=== PATIENT | male | born 1950 | race Caucasian/White ===

== ENCOUNTER → 2017-03-21 | Outpatient (CLI) | payer MEDICARE, OTHER ==
--- NOTE | 2017-03-21 10:12 | MR ---
EXAMINATION TYPE: MR hip RT wo con DATE OF EXAM: 03/21/2017 9:58 AM COMPARISON: NONE HISTORY: Right hip pain TECHNIQUE: Multiplanar, multiecho imaging of the right hip is performed without IV contrast. FINDINGS: There are bilateral hip joint effusions, larger on the right than the left. 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 There is no evidence of bony collapse. No definite ligamentous or capsular abnormality is seen. IMPRESSION: GRADE 1 AVN OF BOTH HIPS GREATER ON THE RIGHT THAN THE LEFT.
== END ==
LOC: RADMRIMAIN 09:05
PROVIDERS: ATTEND Orthopaedic Surgery
DX: M87.88 Other osteonecrosis, other site (principal)

== ENCOUNTER → 2017-07-14 | Outpatient (CLI) | payer MEDICARE, OTHER | END | disposition home or self-care (01) | LOC: LABPAT 12:05 | PROVIDERS: ATTEND Orthopaedic Surgery | DX: Z01.812 Encounter for preprocedural laboratory examination (principal) | CPT/HCPCS: 86850; 86900; 86901; 87070 ==

== ENCOUNTER 2017-07-20 07:30 | Inpatient (IN) | payer MEDICARE, OTHER ==
[2017-07-08 15:45] VITALS: BMI 31.7
--- NOTE | 2017-07-19 14:30 | HP ---
HISTORY AND PHYSICAL Surgery scheduled for 07/20/2017. Josh Jackson is a 67-year-old patient seen with symptomatic right hip osteoarthritis. After having treatment options discussed, he elected to proceed with a right total hip arthroplasty. Consent regarding the procedure was obtained. Medical clearance was provided by Dr. Catalino Smith. PAST MEDICAL HISTORY: Hypertension, depression, hyperlipidemia. PAST SURGICAL HISTORY: Ankle surgery, left knee arthroscopy, nasal surgery. DAILY MEDICATIONS: Aspirin, Bystolic, citalopram, simvastatin. ALLERGIES: None reported. SOCIAL HISTORY: Patient denies tobacco use. PHYSICAL EXAMINATION: Evaluation of the right hip: There is diffuse tenderness. Limited range of motion with pain. Positive hip impingement sign. Straight leg raise is negative. Distal neurovascular exam is intact. RADIOGRAPHS: Radiographs of the right hip revealed moderate osteoarthritis and evidence for avascular necrosis. MRI of right hip confirmed avascular necrosis of the femoral head as well as osteoarthritis. IMPRESSION: 1. Right hip osteoarthritis/avascular necrosis. 2. Hypertension. 3. Hyperlipidemia. PLAN: Direct anterior right total hip arthroplasty. MMODL / IJN: [id number] /
[~2017-07-20 07:30] MED LIST: ACETAMINOPHEN TAB 500 MG TAB PO ONE; HYDROmorphone 0.5 MG/0.5 ML SYRINGE IVP PRN; LIDOCAINE 1% 20 ML VIAL (10MG/ML) FOR IV START INTRADERMA PRN; MELOXICAM 7.5 MG TAB PO ONE; ONDANSETRON 4 MG/2 ML VIAL IVP ONE; TRANEXAMIC ACID 1,000 MG in SODIUM CHLORIDE 0.9% 100 ML IVPB ONE; ceFAZolin IN SWFI 2 GM/20 ML SYRINGE IVP ONE
[2017-07-20] MEDS: LACTATED RINGERS 1,000 ML IV SCH ×2 (10:56→18:39)
[2017-07-20] MEDS ORDERED: ROPIVACAINE 246.25 MG, EPINEPHrine 0.5 MG, KETOROLAC 30 MG, cloNIDine HCL/PF 80 MCG, WA... MISCELLANE ONE ×5 (12:16)
[2017-07-20] MEDS ORDERED: SODIUM CHLORIDE 0.9% 100 ML BAG ONE (12:22)
[2017-07-20] MEDS ORDERED: GLYCOPYRROLATE 0.2 MG/ML 2 ML VIAL ONE (12:22)
[2017-07-20] MEDS ORDERED: PROPOFOL 10 MG/ML 20 ML VIAL IV ONE (12:22)
[2017-07-20] MEDS ORDERED: diphenhydrAMINE 50 MG/ML 1 ML VIAL ONE (12:22)
[2017-07-20] MEDS ORDERED: KETAMINE 10 MG/ML 20 ML VIAL ONE (12:22)
[2017-07-20] MEDS ORDERED: TRANEXAMIC ACID 1,000 MG/10 ML VIAL ONE (12:22)
[2017-07-20] MEDS ORDERED: MIDAZOLAM 2 MG/2 ML VIAL ONE (12:22)
[2017-07-20] MEDS ORDERED: fentaNYL (PF) 50 MCG/ML 2 ML AMP ONE (12:22)
[2017-07-20] MEDS ORDERED: PHENYLEPHRINE-0.9% NACL SYG 1 MG/10 ML SYRINGE ONE (12:22)
[2017-07-20] MEDS ORDERED: ceFAZolin 3,000 MG in SODIUM CHLORIDE 0.9% IRRIGATIO 3,000 ML IRRIGATION ONE (13:02)
[2017-07-20] MEDS ORDERED: LACTATED RINGERS 1,000 ML IV ONE (13:51)
--- NOTE | 2017-07-20 14:26 | FL ---
EXAMINATION TYPE: FL guidance operating room, XR Hip Limited RT DATE OF EXAM: 07/20/2017 CLINICAL HISTORY: Avascular necrosis with right hip replacement. Anterior approach. TECHNIQUE: Fluoroscopy. COMPARISON: None. FINDINGS/IMPRESSION: Fluoroscopic guidance was provided during procedure performed by Dr. Sims. A total of 37 seconds of fluoroscopic time was utilized during the procedure and 1 spot image wa s acquired of the right femoral arthroplasty.
[2017-07-20] MEDS ORDERED: NALOXONE 0.4 MG/ML 1 ML VIAL IV PRN (14:29)
[2017-07-20] MEDS ORDERED: HYDROmorphone 2 MG/ML 1 ML SYRINGE IVP PRN ×3 (14:29)
[2017-07-20] MEDS ORDERED: ONDANSETRON 4 MG/2 ML VIAL IVP PRN (14:29)
[2017-07-20] MEDS ORDERED: HYDROcodone/APAP 7.5-325MG 1 EACH TAB PO PRN (14:29)
--- NOTE | 2017-07-20 14:29 | P.OP ---
Date of Procedure: 07/20/17 Preoperative Diagnosis: Right hip osteoarthritis/avascular necrosis Postoperative Diagnosis: Right hip osteoarthritis/avascular necrosis Procedure(s) Performed: Direct anterior right total hip arthroplasty Implants: 1. Depuy Corail size 13 KA standard collar press-fit femoral stem 2. Depuy Porter 58 mm press-fit acetabular shell 3. Depuy pinnacle polyethylene acetabular liner neutral 36 mm ID 58 mm OD 4. Biolox delta ceramic femoral head +5 36 mm Anesthesia: local, spinal Surgeon: Nahid Sims [employer] #1: Dom Mcnamara Estimated Blood Loss (ml): 250 Pathology: other (Femoral head) Condition: stable Disposition: PACU Indications for Procedure: 67-year-old patient seen with symptomatic right hip osteoarthritis/avascular necrosis. After treatment options were discussed, he elected to proceed with total hip arthroplasty. Operative Findings: see description of procedure Description of Procedure: The patient was taken to the operative suite. Patient underwent a spinal anesthetic by the department of anesthesia. Patient was then transferred to the [facility] table. Patient was given preoperative IV antibiotics and TXA. Both lower extremities were placed in standard leg spars. The hip was then prepped and draped in the normal sterile orthopedic fashion. A standard anterior incision was made beginning 3 cm lateral and 1 cm distal to the ASIS extending 10 cm. Dissection was then carried down through the subcutaneous soft tissues down to the fascia overlying the tensor fascia avinash. An incision was now made through the fascia. Careful dissection was taken down exposing the tensor fascia avinash muscle. A Cobra retractor was now placed along the medial femoral neck and a second one along the lateral femoral neck. The venous circumflex vessels were now identified, cauterized and clipped. We identified the anterior hip capsule. An incision was made through the hip capsule along the lateral border. Tag sutures were then placed along the anterior capsule and lateral capsule. We then performed a capsulotomy. Retractors were now placed around the femoral neck itself. A Cobra retractor was now placed along the anterior acetabulum. Good exposure was now noted of the femoral head/neck complex. Residual labrum was debrided out. We placed the extremity into 3 turns of fine traction. We were then able to introduce a skid in between the femoral head and acetabulum. A placed a awl into the femoral head. We took 2 turns of traction off the extremity. Rotation was now released. The femoral head was then dislocated without difficulty. Additional releasing was performed of the capsule. The head was then reduced. All traction was released. A femoral neck cut was now made with a sagittal saw. It was completed with an osteotome at the lateral neck area. The femoral head was now removed without difficulty. The extremity was now rotated to 45 of external rotation. It was locked in position. Residual labrum was now debrided out. Serial reaming was performed of the acetabulum. Once we reached the appropriate size and a trial was position and fit nicely. The appropriate size was now chosen opened and made available. The wound was irrigated with pulse lavage mechanical irrigation. It was introduced into the acetabulum without difficulty. The C-arm/fluoroscopy was now brought into the operative field. We made sure we had a true AP pelvic view. We now under direct C-arm/ fluoroscopy introduced into the acetabular component with appropriate version and inclination. It was well seated and stable. The C-arm was pulled back. An appropriate liner was introduced and clicked into position. It was felt to be stable. At this point retractors were removed. The extremity was now placed into 120 external rotation with no traction. The leg was now dropped to the ground and adducted. Appropriate retractors were now positioned along the proximal femur. We also placed our femoral look into position. Additional capsular releasing was performed to gain access to the proximal femur. We now used a box osteotome. A canal finder was now utilized. Serial broaching was now performed until we reached the appropriate size with good overall rotational stability. Appropriate calcar planing was performed. A trial head/ neck was placed into position. The hip was now reduced. The C-arm/fluoroscopy was brought back into the operative field. A spot film was obtained of the nonoperative hip. A spot film was obtained of the trial components. Overlays were performed, we noted good overall alignment and positioning for determining leg length. The C-arm/fluoroscopy was pulled back. Retractors were repositioned and the hip was dislocated. The leg was again taken down to the ground and adducted. Appropriate retractors were repositioned as well as the femoral hook. All trial components were removed. The deep soft tissues were infiltrated with local analgesic. The wound was irrigated with pulse lavage mechanical irrigation. The femoral implant was opened along with the femoral head. The femoral implant was introduced with good purchase and fixation noted. The femoral head was introduced with good positioning and fixation noted. Retractors were now removed. The hip was now reduced. There appeared be good positioning of the hip. This was confirmed with fluoroscopy and spot films were obtained to document this. A second gram of TXA was given. Bipolar cautery had been utilized intermittently through the procedure for hemostasis. The wound was irrigated copiously with pulse lavage mechanical irrigation. The fascia was repaired with Vicryl suture. The subcutaneous soft tissues were repaired in layers with Vicryl suture. The skin was approximated with pernio/ Dermabond. Sterile dressings were applied. Patient was then awakened, transferred to a bed and taken to recovery in stable condition. Angus DIAZ assisted with the procedure.
[2017-07-20] MEDS: hydrOXYzine PAMOATE 25 MG CAP PO PRN (18:41)
[2017-07-20] MEDS: HYDROcodone/APAP 7.5-325MG 1 EACH TAB PO PRN (18:42)
[2017-07-20] MEDS: ceFAZolin IN SWFI 2 GM/20 ML SYRINGE IVP SCH ×2 (18:59→23:00)
[2017-07-20] MEDS: traMADol 50 MG TAB PO SCH ×2 (18:59→22:59)
[2017-07-20] MEDS ORDERED: ATORVASTATIN 20 MG TAB PO SCH (21:00)
[2017-07-20] MEDS ORDERED: FENOFIBRATE 160 MG TAB PO SCH (21:00)
[2017-07-20] MEDS ORDERED: SENNOSIDES-DOCUSATE SODIUM 1 EACH TAB PO SCH (21:00)
[2017-07-20] MEDS ORDERED: CITALOPRAM HYDROBROMIDE 20 MG TAB PO SCH (21:00)
[2017-07-21 02:11] VITALS: RESP 16
[2017-07-21] MEDS: HYDROcodone/APAP 7.5-325MG 1 EACH TAB PO PRN (05:25)
[2017-07-21] MEDS: hydrOXYzine PAMOATE 25 MG CAP PO PRN (05:25)
[2017-07-21 07:45] LABS: Basophils % (A) 0 %; Eosinophils # (A) 0.2 k/uL (0-0.7); Eosinophils % (A) 2 %; HCT 37.4 % (39.0-53.0); HGB 12.2 gm/dL (13.0-17.5); Lymphocytes # (A) 1.1 k/uL (1.0-4.8); Lymphocytes % (A) 12 %; MCH 30.6 pg (25.0-35.0); MCHC 32.8 g/dL (31.0-37.0); MCV 93.3 fL (80.0-100.0); Mean Platelet Volume 7.6; Monocytes # (A) 0.5 k/uL (0-1.0); Monocytes % (A) 6 %; Neutrophils # (A) 7.1 k/uL (1.3-7.7); Neutrophils % (A) 78 %; Platelet Count 252 k/uL (150-450); RDW 13.6 % (11.5-15.5); WBC 9.1 k/uL (3.8-10.6)
[2017-07-21] MEDS: traMADol 50 MG TAB PO SCH ×2 (08:21→13:24)
[2017-07-21] MEDS ORDERED: FERROUS SULFATE 325 MG TAB PO SCH (09:00)
[2017-07-21] MEDS ORDERED: ENOXAPARIN 40 MG/0.4 ML SYRINGE SQ SCH (09:00)
[2017-07-21] MEDS ORDERED: NEBIVOLOL 5 MG TAB PO SCH (09:00)
[2017-07-21] MEDS ORDERED: FAMOTIDINE 20 MG TAB PO SCH (09:00)
[2017-07-21] MEDS ORDERED: MELOXICAM 7.5 MG TAB PO SCH (09:00)
[2017-07-21 10:02] VITALS: BP 143/73; PULSE 85; TEMP 97.9
--- NOTE | 2017-07-21 10:48 | P.CONS ---
History of Present Illness - Reason for Consult Consult date: 07/21/17 Medical management - Chief Complaint s/p right total hip arthroplasty - History of Present Illness 67-year-old male who underwent an elective right total hip arthroplasty on 07/20/[address] Sism secondary to osteoarthritis and avascular necrosis of the right femoral head. Dr. Smith was consulted for medical management. The patient has a history of hypertension, hyperlipidemia, kidney stones, depression, osteoarthritis, irritation of the right fourth and fifth fingers, ORIF of left ankle, and obesity. He is a former smoker and quit smoking cigarette in 1987. The patient was seen and examined at the bedside on rounds with Dr. Smith. The patient is awake and alert laying in bed. He is tolerating PO intake without nausea or vomiting. He states the pain in his right hip is tolerable at this time. He has been out of bed and ambulating to the bathroom. He states he has not ambulated in the hallway with physical therapy but is anticipating working with PT today. Dressing to hip is clean dry and intact. He denies shortness of breath or chest pain. His vital signs have remained stable. He is afebrile. He is on room air with an oxygen saturation greater than 92%. He denies any concerns or complaints at this time. Review of Systems GENERAL: Patient denies fever. Denies chills. EYES: Denies blurred vision. Denies vision changes. Denies eye pain. EARS, NOSE, MOUTH, & THROAT: Denies headache. Denies sore throat. Denies ear pain. RESPIRATORY: Denies cough. Denies shortness of breath. Denies sputum production. Denies hemoptysis. CARDIOVASCULAR: Denies chest pain or pressure. Denies palpitations. Denies arrhythmias. GASTROINTESTINAL: Denies abdominal pain. Denies diarrhea. Denies constipation. Denies nausea. Denies vomiting. Denies heartburn. Denies blood in the stool. GENITOURINARY: Denies urinary frequency. Denies burning. Denies dysuria. Denies cloudy urine. Denies blood in the urine. MUSCULOSKELETAL: Positive for recent pain in right hip. Denies myalgias. Denies joint swelling. Denies decreased range of motion beyond patients baseline. INTEGUMENTARY: Denies pruitis. Denies rash. PSYCHIATRIC: Denies suicidal or homicial ideations. ENDOCRINE: Denies weight change. Denies polydipsia. Denies polyuria. HEMATOLOGIC: Denies bleeding disorders. Past Medical History Past Medical History: Hyperlipidemia, Hypertension, Osteoarthritis (OA) Additional Past Medical History / Comment(s): hx. kidney stones History of Any Multi-Drug Resistant Organisms: None Reported Past Surgical History: Hernia Repair, Orthopedic Surgery Additional Past Surgical History / Comment(s): right 4th & 5th fingers amputated ,ORIF left ankle, arthroscopy both knees, sinus surg. Past Anesthesia/Blood Transfusion Reactions: No Reported Reaction Past Psychological History: Depression Smoking Status: Former smoker Past Alcohol Use History: Occasional Additional Past Alcohol Use History / Comment(s): quit smoking 1987, smoked 1ppd since age of 18 Past Drug Use History: None Reported - Past Family History Sister(s) Family Medical History: Cancer Medications and Allergies Home Medications Medication Instructions Recorded Confirmed Type Aspirin 81 mg PO DAILY 07/08/17 07/20/17 History Citalopram Hydrobromide [CeleXA] 20 mg PO HS 07/08/17 07/20/17 History Cyanocobalamin [Vitamin B-12] 500 mcg PO DAILY 07/08/17 07/20/17 History Fenofibrate Nanocrystallized 145 mg PO HS 07/08/17 07/20/17 History [Tricor] Ferrous Sulfate [Iron (65 MG 325 mg PO DAILY 07/08/17 07/20/17 History Elemental)] Multivitamin [Men's Multi-Vitamin] 1 tab PO DAILY 07/08/17 07/20/17 History Nebivolol [Bystolic] 5 mg PO DAILY 07/08/17 07/20/17 History [place]-3 Fatty Acids/Fish Oil [Fish 1 cap PO DAILY 07/08/17 07/20/17 History Oil 1,000 mg Softgel] Simvastatin [Zocor] 40 mg PO HS 07/08/17 07/20/17 History Allergies Allergy/AdvReac Type Severity Reaction Status Date / Time morphine AdvReac Nausea & Verified 07/20/17 17:47 Vomiting Physical Exam Vitals: Vital Signs Temp Pulse Pulse Pulse Resp BP BP 07/21/17 07:00 97.9 F 85 16 143/73 07/21/17 01:15 98.7 F 84 16 144/72 07/20/17 20:00 98.3 F 75 18 169/73 07/20/17 17:15 57 L 137/70 07/20/17 16:45 98.0 F 61 16 133/68 07/20/17 16:15 67 16 137/79 07/20/17 15:45 72 16 133/63 07/20/17 15:30 55 L 16 135/63 07/20/17 15:15 55 L 16 137/64 07/20/17 15:00 55 L 16 144/67 07/20/17 14:47 96.8 F L 68 14 120/59 07/20/17 10:40 98.4 F 76 16 186/89 Pulse Ox 07/21/17 07:00 93 L 07/21/17 01:15 93 L 07/20/17 20:00 96 07/20/17 17:15 07/20/17 16:45 92 L 07/20/17 16:15 95 07/20/17 15:45 95 07/20/17 15:30 95 07/20/17 15:15 100 07/20/17 15:00 100 07/20/17 14:47 99 07/20/17 10:40 95 Intake and Output 07/20/17 07/21/17 07/21/17 22:59 06:59 14:59 Intake Total 1060 430 Balance 1060 430 Intake: IV 500 Intake, IV Titration 60 80 Amount Lactated Ringers 1,000 ml 60 80 @ 20 mls/hr IV .Q24H [facility] Rx#:[id number] Oral 500 350 Other: Voiding Method Toilet Toilet # Voids 1 2 2 GENERAL: This is a 67-year-old male in no apparent distress at the time of examination. Pleasant and cooperative. HEENT: Head is atraumatic, normocephalic. Pupils are equal, round, and reactive to light. Sclerae anicteric. Conjunctivae are clear. Mucus membranes of the mouth are moist. Neck is supple. RESPIRATORY: Clear to ausculation. No wheezes, rales, or rhonchi. No use of accessory muscles. Patient maintaining oxygen saturation greater than 92% on room air. No chest wall tenderness is noted on palpation or with deep breathing. CARDIOVASCULAR: Regular rate and rhythm. S1 and S2 noted. No systolic or diastolic murmur auscultated. No JVD noted. No S3 or S4 noted. GASTROINTESTINAL: No distention noted. Abdomen soft and round. Normal active bowel sounds auscultated X 4 quadrants. No pain or tenderness noted upon palpation. INTEGUMENTARY: Dressing to right hip clean dry and intact. No drainage noted. No cyanosis. No jaundice. No rashes noted. No cellulitis noted. EXTREMITIES: 2+ peripheral pulses. No evidence of peripheral edema. No calf tenderness noted. NEUROLOGIC: Cranial nerves II-XII intact. PSYCHIATRIC: Awake, alert, and oriented X 3. Appropriate affect. Intact judgement and insight. Results CBC & Chem 7: 07/21/17 07:05 Labs: Abnormal Lab Results - Last 24 Hours (Table) 07/21/17 Range/Units 07:05 RBC 4.00 L (4.30-5.90) m/uL Hgb 12.2 L (13.0-17.5) gm/dL Hct 37.4 L (39.0-53.0) % Assessment and Plan Plan: ASSESSMENT: Osteoarthritis and avascular necrosis of right femoral head, s/p right total hip arthroplasty, POD #1 Essential hypertension Hyperlipidemia Depression, unspecified Obesity: BMI 31.7 Remote history of nicotine dependence, patient quit smoking cigarettes in 1987 PLAN: -Continue postoperative surgical care per Dr. Sims -Home meds as appropriate -Monitor labs -Pain control -Physical therapy -Activity as tolerated -Incentive spirometer 10 times an hour while awake -GI prophylaxis: Pepcid 20 mg by mouth daily -DVT prophylaxis: Lovenox 40 mg subcu daily -Monitor vital signs and address as appropriate -Discharge planning: Patient to return home when stable with home care -Further recommendations pending patient's course Nurse practitioner note has been reviewed by physician. Signing provider agrees with the documented findings, assessment, and plan of care.
--- NOTE | 2017-07-21 13:21 | P.PN ---
Subjective Progress Note Date: 07/21/17 Principal diagnosis: Status post right total hip arthroplasty Patient seen today resting in his hospital bed, his is present at bedside. Patient's done well at this point, exam ambulated with therapy. He is urinating on his own. No acute complaints. Denies any headaches, lightheadedness, chest pain or shortness of breath. Objective - Vital Signs Vital signs: Vital Signs Temp 97.9 F 07/21/17 07:00 Pulse 85 07/21/17 07:00 Resp 16 07/21/17 07:00 BP 143/73 07/21/17 07:00 Pulse Ox 93 L 07/21/17 07:00 Intake & Output 07/20/17 07/21/17 07/21/17 18:59 06:59 18:59 Intake Total 1801 990 Output Total 250 Balance 1551 990 Intake: IV 1801 Intake, IV Titration 140 Amount Lactated Ringers 1,000 ml 140 @ 20 mls/hr IV .Q24H [facility] Rx#:[id number] Oral 850 Output: Estimated Blood Loss 250 Other: Voiding Method Toilet Toilet # Voids 2 2 - Exam Right lower extremity: Incision is clean, dry, and intact. The prineo tape is in good condition. There is minimal soft tissue swelling and ecchymosis surrounding the medial and lateral aspects of the incision. Calf is soft, no tenderness with palpation. Plantar flexion, dorsiflexion, EHL, FHL are intact. Sensory exam to light touch throughout the extremity is intact, dorsal pedis pulses 2+. - Labs CBC & Chem 7: 07/21/17 07:05 Labs: Abnormal Lab Results - Last 24 Hours (Table) 07/21/17 Range/Units 07:05 RBC 4.00 L (4.30-5.90) m/uL Hgb 12.2 L (13.0-17.5) gm/dL Hct 37.4 L (39.0-53.0) % Assessment and Plan Assessment: Assessment: 1. Postop day 1 status post right total hip arthroplasty Plan: 1. Pain control, will discharge home on oral medication 2. GI and DVT prophylaxis, aspirin 325 mg twice a day 3. Wound care instructions were discussed 4. Home therapy and nursing after discharge 5. Medical recommendations 6. Discharge planning: Discharged home today Time with Patient: Less than 30
--- NOTE | 2017-07-21 13:24 | P.DS ---
Providers Date of admission: 07/20/17 10:27 Expected date of discharge: 07/21/17 Attending physician: Nahid Sims Consults: 07/20/17 14:29 Consult Physician Routine Consulting Provider: Catalino Smith Reason/Comments: Medical management Do you want consulting provider notified?: Yes Primary care physician: Catalino Smith [facility] Course: Date of admission: 07/20/2017 Date of discharge: 07/21/2017 Admission diagnosis: Status post right total hip arthroplasty Discharge diagnosis: Same Attending physician: Dr. Sims Surgical procedures: Right total hip arthroplasty Brief history: Patient is a 67-year-old male with a history of progressive primary right hip osteoarthritis. At this point patient has failed conservative treatment measures and has opted to proceed with a elective right total hip arthroplasty. Hospital course: Details of patient's surgery can be found in operative report. Patient tolerated the procedure well and was subsequently transported to orthopedic floor. Patient's orthopeidc and medical care was provided daily. Patient had daily laboratory tests performed for evaluation of overall blood counts. Patient had daily physical therapy to include strengthening range of motion as well as education with walker ambulation. Patient was treated with Lovenox for their postoperative DVT prophylaxis during their inpatient stay. Patient was noted to have a relatively uneventful postoperative course. Patient reported satisfactory pain control with oral pain medications by postoperative day 0. Patient showed satisfactory progress with physical therapy. Patient moved steadily through the program and had no difficulty meeting the goals by postoperative day 1. Given patient's otherwise satisfactory course and having met physical therapy goals, plan is to discharge patient home on postoperative day 1. Discharge condition/disposition: Patient will be discharged home in stable condition. Discharge medications: Instructions are given on resumption of patient's normal daily medications per primary care recommendation, in addition patient will be prescribed [place] 7.5 mg/325 mg, tramadol 50 mg, Colace 100 mg, aspirin 325 mg. Discharge instructions: 1. Wound care and infection precautions, keep incision dry and covered while showering, no lotions, creams, moisturizers. No soaking, tubs, pools, hottubs. Do not scrub over the incision. 2. Weight-bear as tolerated with walker / cane until follow-up. 3. Ice and elevate when necessary. Do not exceed 20 minutes per hour with ice pack. 4. Utilize compression sleeve until seen at first follow up appointment. 5. Visiting nursing care. 6. Home physical therapy. 7. Pain meds and anticoagulants per prescription. 8. Pain medication has potential to cause constipation. Increase oral fluid and fiber intake. Contact primary care provider if you have not had a bowel movement within 48 hours after discharge 9. No anti-inflammatory medication until discussed at first post operative visit, this including Motrin, Aleve, Mobic, Diclofenac. 10. Follow up in office at 2 weeks postop with Angus Mcnamara PA-C 11. Follow up with your primary care doctor 7-10 days after discharge. 12. Contact [facility] with any questions, . Procedures: Right total hip arthroplasty Patient Condition at Discharge: Good Plan - Discharge Summary Discharge Rx Participant: Yes New Discharge Prescriptions: New Aspirin 325 mg PO BID #60 tab Docusate [Colace] 100 mg PO DAILY #30 capsule HYDROcodone/APAP 7.5-325MG [[place] 7.5] 1 - 2 each PO Q6HR PRN #60 tab PRN Reason: Pain traMADol HCl [Ultram] 50 mg PO Q6H PRN #40 tab PRN Reason: Pain Continue Ferrous Sulfate [Iron (65 MG Elemental)] 325 mg PO DAILY Cyanocobalamin [Vitamin B-12] 500 mcg PO DAILY Simvastatin [Zocor] 40 mg PO HS Nebivolol [Bystolic] 5 mg PO DAILY Citalopram Hydrobromide [CeleXA] 20 mg PO HS [place]-3 Fatty Acids/Fish Oil [Fish Oil 1,000 mg Softgel] 1 cap PO DAILY Multivitamin [Men's Multi-Vitamin] 1 tab PO DAILY Fenofibrate Nanocrystallized [Tricor] 145 mg PO HS Discharge Medication List Citalopram Hydrobromide [CeleXA] 20 mg PO HS 07/08/17 [History] Cyanocobalamin [Vitamin B-12] 500 mcg PO DAILY 07/08/17 [History] Fenofibrate Nanocrystallized [Tricor] 145 mg PO HS 07/08/17 [History] Ferrous Sulfate [Iron (65 MG Elemental)] 325 mg PO DAILY 07/08/17 [History] Multivitamin [Men's Multi-Vitamin] 1 tab PO DAILY 07/08/17 [History] Nebivolol [Bystolic] 5 mg PO DAILY 07/08/17 [History] [place]-3 Fatty Acids/Fish Oil [Fish Oil 1,000 mg Softgel] 1 cap PO DAILY [History] Simvastatin [Zocor] 40 mg PO HS 07/08/17 [History] Aspirin 325 mg PO BID #60 tab 07/21/17 [Rx] Docusate [Colace] 100 mg PO DAILY #30 capsule 07/21/17 [Rx] HYDROcodone/APAP 7.5-325MG [[place] 7.5] 1 - 2 each PO Q6HR PRN #60 tab 07/21/17 [ Rx] traMADol HCl [Ultram] 50 mg PO Q6H PRN #40 tab 07/21/17 [Rx] Follow up Appointment(s)/Referral(s): Catalino Smith DO [Primary Care Provider] - 08/04/17 11:20 am Dom Mcnamara PAC [PHYSICIAN NURSERY ATTENDANT] - 08/05/17 1:50 pm [facility] Visiting Nurse, [NON-STAFF] - Patient Instructions/Handouts: Anterior Hip Replacement (DC) Activity/Diet/Wound Care/Special Instructions: Orthopedic Discharge Instructions: 1. Wound care and infection precautions, keep incision dry and covered while showering, no lotions, creams, moisturizers. No soaking, pools, hot tubs. Do not scrub over incision. 2. Weight-bear as tolerated with walker / cane until follow-up. 3. Ice and elevate when necessary. Do not exceed 20 minutes per hour with ice pack. 4. Utilize compression sleeve until seen at first follow up appointment. 5. Visiting nursing care. 6. Home physical therapy. 7. Pain meds and anticoagulants per prescription. 8. Pain medication has potential to cause constipation. Increase oral fluid and fiber intake. Contact primary care provider if you have not had a bowel movement within 48 hours after discharge. 9. No anti-inflammatory medication until discussed at first post operative visit, this including Motrin, Aleve, Mobic, Diclofenac. 10. Follow up in office at 2 weeks postop with Angus Mcnamara PA-C 11. Follow up with your primary care doctor 7-10 days after discharge. 12. Contact [facility] with any questions, . Discharge Disposition: HOME WITH HOME HEALTH SERVICES
== END 2017-07-21 15:35 | disposition home health service (06) | DRG 470 ==
LOC: 2ORMAIN 10:27 → 3SUR 16:23
PROVIDERS: ADMIT Orthopaedic Surgery; ATTEND Orthopaedic Surgery
PROC: 0SR904A Replacement of Right Hip Joint with Ceramic on Polyethylene Synthetic Substitute, Uncemented, Open Approach (ICD-10-PCS; principal; 2017-07-20 12:00)
DX: M16.11 Unilateral primary osteoarthritis, right hip (principal); M87.9 Osteonecrosis, unspecified; E66.9 Obesity, unspecified; Z68.31 Body mass index [BMI] 31.0-31.9, adult; E78.5 Hyperlipidemia, unspecified; M89.751 Major osseous defect, right pelvic region and thigh; F32.9 Major depressive disorder, single episode, unspecified; I10 Essential (primary) hypertension; Z79.82 Long term (current) use of aspirin; Z79.899 Other long term (current) drug therapy; Z87.442 Personal history of urinary calculi; Z87.891 Personal history of nicotine dependence; Z89.029 Acquired absence of unspecified finger(s); Z88.5 Allergy status to narcotic agent
CPT/HCPCS: 73501; 85025; 86850; 86900; 86901; 88305; 88311

== ENCOUNTER → 2019-06-24 | Outpatient (CLI) | payer MEDICARE, OTHER ==
--- NOTE | 2019-06-24 13:51 | ECHOF ---
Referral Reason:Chest Pain MEASUREMENTS -------- HEIGHT: 175.3 cm WEIGHT: 99.8 kg BP: RVIDd: 3.3 cm (< 3.3) IVSd: 1.3 cm (0.6 - 1.1) LVIDd: 3.8 cm (3.9 - 5.3) LVPWd: 1.4 cm (0.6 - 1.1) IVSs: 1.6 cm LVIDs: 3.0 cm LVPWs: 1.3 cm LA Diam: 3.5 cm (2.7 - 3.8) LAESV Index (A-L): 16.56 ml/m Ao Diam: 2.7 cm (2.0 - 3.7) AV Cusp: 1.4 cm (1.5 - 2.6) LA Diam: 3.6 cm (2.7 - 3.8) MV EXCURSION: 15.271 mm (> 18.000) MV EF SLOPE: 51 mm/s (70 - 150) EPSS: 0.3 cm MV E Kayden: 0.47 m/s MV DecT: 284 ms MV A Kayden: 0.79 m/s MV E/A Ratio: 0.60 RAP: 5.00 mmHg RVSP: 18.83 mmHg FINDINGS -------- Sinus rhythm. This was a technically adequate study. The left ventricular size is normal. There is mild concentric left ventricular hypertrophy. Overa ll left ventricular systolic function is low-normal with, an EF between 50 - 55 %. The diastolic fi lling pattern is normal for the age of the patient 8.30. The right ventricle is normal in size. The left atrial size is normal. Normal LA size by volume 22+/-6 ml/m2. The right atrial size is normal. There is mild aortic valve sclerosis. There is no evidence of aortic regurgitation. Mild mitral annular calcification present. Mild mitral regurgitation is present. Mild tricuspid regurgitation present. Right ventricular systolic pressure is normal at < 35 mmHg. There is no evidence of pulmonary hypertension. There is no pulmonic regurgitation present. The aortic root size is normal. There is no pericardial effusion. CONCLUSIONS -------- 1. Sinus rhythm. 2. This was a technically adequate study. 3. The left ventricular size is normal. 4. There is mild concentric left ventricular hypertrophy. 5. Overall left ventricular systolic function is low-normal with, an EF between 50 - 55 %. 6. The diastolic filling pattern is normal for the age of the patient 8.30 7. The right ventricle is normal in size. 8. The left atrial size is normal. 9. Normal LA size by volume 22+/-6 ml/m2. 10. The right atrial size is normal. 11. There is mild aortic valve sclerosis. 12. Mild mitral annular calcification present. 13. Mild mitral regurgitation is present. 14. Mild tricuspid regurgitation present. 15. Right ventricular systolic pressure is normal at < 35 mmHg. 16. There is no evidence of pulmonary hypertension. 17. There is no pulmonic regurgitation present. 18. The aortic root size is normal. 19. There is no pericardial effusion. AUTOMOTIVE SERVICE WRITER: Yelitza Friedman RDCS
--- NOTE | 2019-06-27 10:00 | EST ---
EXERCISE STRESS INDICATION: Chest pain. AGE: 69 SEX: M HT: 5'9" WT: 220 PROTOCOL: Dion STAGE: II DURATION OF EXERCISE: 6 minutes HEART RATE REST: 65 BLOOD PRESSURE REST: 172/85 MAXIMUM HEART RATE ACHIEVED: 108 MAXIMUM BLOOD PRESSURE: 236/67 85% MPHR: 128 100% MPHR: 151 METS: 7.1 STRESS DATA: Heart rate 65, pressure is 172/85 mmHg. Baseline EKG showed sinus rhythm. The patient exercised on the treadmill according to Dion protocol for a total of 6 minutes and achieved 7.1 METS. Max heart rate was 108, which is about 80% of maximum predicted heart rate. Maximum blood pressure was 236/67 mmHg. Clinically the patient did not develop some shortness of breath in response to exercise. The EKG did not show any significant ST or T-wave abnormalities concerning for ischemia. CONCLUSION: 1. Good exercise tolerance. 2. Normal EKG in response to exercise. 3. The patient achieved 80% of maximum predicted heart rate. MMODL / IJN: [id number] /
== END ==
LOC: RADNMMAIN 08:27
PROVIDERS: ATTEND Family Medicine
DX: I08.1 Rheumatic disorders of both mitral and tricuspid valves (principal); I10 Essential (primary) hypertension
CPT/HCPCS: 93017; 93306

== ENCOUNTER → 2019-07-07 | Outpatient (CLI) | payer MEDICARE, OTHER ==
--- NOTE | 2019-07-07 09:52 | US ---
EXAMINATION TYPE: US liver DATE OF EXAM: 07/07/2019 COMPARISON: NONE CLINICAL HISTORY: R74.8 Abn levels serum enzymes. no symptoms, abn labs EXAM MEASUREMENTS: Liver Length: 17.6 cm Gallbladder Wall: 0.2 cm CBD: 0.5 cm Right Kidney: 11.1 x 4.8 x 5.9 cm Pancreas: wnl Liver: Liver echotexture is coarse Gallbladder: small stones seen with no wall thickening Evidence for sonographic Robert's sign: no CBD: wnl Right Kidney: wnl There is no ascites. IMPRESSION: Correlate for hepatocellular disease, hepatic steatosis. Cholelithiasis.
== END | disposition home or self-care (01) ==
LOC: RADUSWWP 08:56
PROVIDERS: ATTEND Internal Medicine Gastroenterology
DX: K80.20 Calculus of gallbladder without cholecystitis without obstruction (principal)
CPT/HCPCS: 76705

== ENCOUNTER → 2019-07-18 | Outpatient (CLI) | payer MEDICARE, OTHER ==
[2019-07-18 10:43] LABS: Prothrombin Time 10.5 sec (9.0-12.0)
[2019-07-18 17:52] LABS: Protein, Total 6.3 g/dL (6.2-8.2)
[2019-07-18 18:18] LABS: % Iron Saturation 39.37 (15.00-50.00); Albumin 4.5 g/dL (3.80-4.90); Albumin/Globulin Ratio 2.37 (1.60-3.17); Bilirubin, Conjugated 0.2 mg/dL (0.20-0.40); Bilirubin,Unconjugated 0.5 mg/dL; Ferritin 1151.2 ng/mL (22.0-322.0); Globulin 1.9 g/dL (1.6-3.3); Total Bilirubin 0.7 mg/dL (0.3-1.2); Total Protein 6.4 g/dL (6.2-8.2)
[2019-07-19 13:30] LABS: Albumin 3.94 g/dL (3.80-4.90); Gamma Globulin 0.57 g/dL (0.70-1.50)
== END | disposition home or self-care (01) ==
LOC: LABWHC1 09:34
PROVIDERS: ATTEND Physician Assistant
DX: R74.8 Abnormal levels of other serum enzymes (principal)
CPT/HCPCS: 36415; 80076; 82103; 82728; 83516; 83540; 83550; 84165; 85610; 86038

== ENCOUNTER → 2020-02-03 | Outpatient (CLI) | payer MEDICARE, OTHER ==
[2020-02-03 16:50] LABS: Albumin 4.4 g/dL (3.80-4.90); Albumin/Globulin Ratio 2.32 (1.60-3.17); Bilirubin, Conjugated 0.2 mg/dL (0.20-0.40); Bilirubin,Unconjugated 0.4 mg/dL; Chol/HDL Ratio 4.79; Globulin 1.9 g/dL (1.6-3.3); LDL Cholesterol,Calculated 89.8 mg/dL (0.0-131.0); Total Bilirubin 0.6 mg/dL (0.2-1.2); Total Protein 6.3 g/dL (6.2-8.2); VLDL Calculation 35.2 mg/dL (5.00-40.00)
== END | disposition home or self-care (01) ==
LOC: LABWHC1 07:36
PROVIDERS: ATTEND Physician Assistant
DX: E78.5 Hyperlipidemia, unspecified (principal); R74.8 Abnormal levels of other serum enzymes
CPT/HCPCS: 36415; 80061; 80076

== ENCOUNTER → 2021-04-15 | Outpatient (CLI) | payer MEDICARE, OTHER ==
[2021-04-15 15:54] LABS: ALT 160 U/L (10-49); AST 114 U/L (14-35); African American GFR (CKD) 75.4 (60.0-200.0); Albumin 4.5 g/dL (3.8-4.9); Albumin/Globulin Ratio 1.94 (1.60-3.17); Alkaline Phosphatase 83 U/L (41-126); BUN/Creat Ratio 18.76 Ratio (12.00-20.00); Bilirubin, Conjugated <0.20 mg/dL (0.20-0.40); Blood Urea Nitrogen 21.2 mg/dL (9.0-27.0); Calcium 10.1 mg/dL (8.7-10.3); Carbon Dioxide 23.4 mmol/L (21.6-31.8); Chloride 100 mmol/L (96-109); Globulin 2.3 g/dL (1.6-3.3); Glucose 112 mg/dL (70-110); LDL Cholesterol,Calculated 89.8 mg/dL (0.0-131.0); Magnesium 1.7 mg/dL (1.5-2.4); Potassium 4.2 mmol/L (3.5-5.5); Sodium 137 mmol/L (135-145); Total Protein 6.8 g/dL (6.2-8.2)
== END | disposition home or self-care (01) ==
LOC: LABWHC1 08:41
PROVIDERS: ATTEND Nurse Practitioner Adult Health
DX: I10 Essential (primary) hypertension (principal); E78.5 Hyperlipidemia, unspecified; R74.8 Abnormal levels of other serum enzymes
CPT/HCPCS: 36415; 80048; 80061; 80076; 83735

== ENCOUNTER → 2021-07-25 | Outpatient (CLI) | payer MEDICARE, OTHER ==
[2021-07-25 16:44] LABS: % Iron Saturation 36.29 (15.00-50.00); ALT 92 U/L (10-49); AST 71 U/L (14-35); Albumin 4.3 g/dL (3.8-4.9); Albumin/Globulin Ratio 2.05 (1.60-3.17); Alkaline Phosphatase 82 U/L (41-126); Bilirubin, Conjugated <0.20 mg/dL (0.20-0.40); Chol/HDL Ratio 4.93 Ratio; Globulin 2.1 g/dL (1.6-3.3); Iron 126 ug/dL (65-175); LDL Cholesterol,Calculated 91.1 mg/dL (0.0-131.0); Total Iron Binding Capacity 347 ug/dL (228-460); Total Protein 6.4 g/dL (6.2-8.2)
== END | disposition home or self-care (01) ==
LOC: LABWHC1 09:01
PROVIDERS: ATTEND Internal Medicine Gastroenterology
DX: E78.5 Hyperlipidemia, unspecified (principal); R77.8 Other specified abnormalities of plasma proteins; R74.8 Abnormal levels of other serum enzymes
CPT/HCPCS: 36415; 80061; 80076; 82728; 83540; 83550

== ENCOUNTER → 2021-10-28 | Outpatient (CLI) | payer MEDICARE, OTHER ==
[2021-10-28 14:53] LABS: Basophils # (A) 0.09 X 10*3/uL (0.00-0.10); Basophils % (A) 1.3 %; Eosinophils # (A) 0.47 X 10*3/uL (0.04-0.35); Eosinophils % (A) 6.6 %; HCT 44.1 % (39.6-50.0); HGB 14.8 g/dL (13.0-17.0); Immature Grans, Automated 0.7 %; Lymphocytes # (A) 1.63 X 10*3/uL (0.90-5.00); Lymphocytes % (A) 22.8 %; MCH 31.4 pg (27.0-32.0); MCHC 33.6 g/dL (32.0-37.0); MCV 93.6 fL (80.0-97.0); Mean Platelet Volume 10.5 fL (9.5-12.2); Monocytes # (A) 0.65 X 10*3/uL (0.20-1.00); Monocytes % (A) 9.1 %; NRBC Per 100 WBC 0 /100 WBCS (0.0-0.0); Neutrophils # (A) 4.25 X 10*3/uL (1.80-7.70); Neutrophils % (A) 59.5 %; Platelet Count 289 X 10*3/uL (140-440); RBC 4.71 X 10*6/uL (4.40-5.60); WBC 7.14 X 10*3/uL (4.50-10.00)
[2021-10-28 15:12] LABS: ALT 175 U/L (10-49); AST 140 U/L (14-35); Albumin 4.5 g/dL (3.8-4.9); Albumin/Globulin Ratio 1.69 (1.60-3.17); Alkaline Phosphatase 77 U/L (41-126); Bilirubin, Conjugated <0.20 mg/dL (0.20-0.40); Globulin 2.7 g/dL (1.6-3.3); Total Protein 7.2 g/dL (6.2-8.2)
== END | disposition home or self-care (01) ==
LOC: LABWHC1 09:26
PROVIDERS: ATTEND Nurse Practitioner Family
DX: R74.8 Abnormal levels of other serum enzymes (principal); R77.8 Other specified abnormalities of plasma proteins
CPT/HCPCS: 36415; 80076; 82728; 85025

== ENCOUNTER → 2022-01-28 | Outpatient (CLI) | payer MEDICARE, OTHER ==
[2022-01-28 14:12] LABS: Basophils # (A) 0.09 X 10*3/uL (0.00-0.10); Basophils % (A) 1.3 %; Eosinophils # (A) 0.58 X 10*3/uL (0.04-0.35); Eosinophils % (A) 8.2 %; HCT 42.9 % (39.6-50.0); HGB 14.3 g/dL (13.0-17.0); Immature Grans, Automated 0.7 %; Lymphocytes # (A) 1.75 X 10*3/uL (0.90-5.00); Lymphocytes % (A) 24.8 %; MCHC 33.3 g/dL (32.0-37.0); MCV 93.1 fL (80.0-97.0); Mean Platelet Volume 10.8 fL (9.5-12.2); Monocytes # (A) 0.65 X 10*3/uL (0.20-1.00); Monocytes % (A) 9.2 %; NRBC Per 100 WBC 0 /100 WBCS (0.0-0.0); Neutrophils # (A) 3.95 X 10*3/uL (1.80-7.70); Neutrophils % (A) 55.8 %; Platelet Count 260 X 10*3/uL (140-440); RBC 4.61 X 10*6/uL (4.40-5.60); RDW 13.2 % (11.5-14.5); WBC 7.07 X 10*3/uL (4.50-10.00)
[2022-01-28 14:37] LABS: Albumin 4.3 g/dL (3.8-4.9); Albumin/Globulin Ratio 1.84 (1.60-3.17); Bilirubin, Conjugated 0.2 mg/dL (0.20-0.40); Bilirubin,Unconjugated 0.6 mg/dL (0.20-1.00); Globulin 2.4 g/dL (1.6-3.3); Total Bilirubin 0.8 mg/dL (0.30-1.20); Total Protein 6.7 g/dL (6.2-8.2)
== END | disposition home or self-care (01) ==
LOC: LABWHC1 09:33
PROVIDERS: ATTEND Internal Medicine Gastroenterology
DX: R74.8 Abnormal levels of other serum enzymes (principal)
CPT/HCPCS: 36415; 80076; 85025

== ENCOUNTER 2022-02-24 08:54 | Day surgery (SDC) | payer MEDICARE, OTHER ==
[~2022-02-24 08:54] MED LIST changes: -ACETAMINOPHEN TAB 500 MG TAB PO ONE; +ALPRAZolam 0.25 MG TAB PO PRN; -HYDROmorphone 0.5 MG/0.5 ML SYRINGE IVP PRN; -LIDOCAINE 1% 20 ML VIAL (10MG/ML) FOR IV START INTRADERMA PRN; -MELOXICAM 7.5 MG TAB PO ONE; -ONDANSETRON 4 MG/2 ML VIAL IVP ONE; -TRANEXAMIC ACID 1,000 MG in SODIUM CHLORIDE 0.9% 100 ML IVPB ONE; -ceFAZolin IN SWFI 2 GM/20 ML SYRINGE IVP ONE
[2022-02-24 09:28] LABS: Basophils # (A) 0.1 k/uL (0-0.2); Basophils % (A) 1 %; Eosinophils # (A) 0.5 k/uL (0-0.7); Eosinophils % (A) 7 %; HCT 44.8 % (39.0-53.0); HGB 15.2 gm/dL (13.0-17.5); Lymphocytes # (A) 1.6 k/uL (1.0-4.8); Lymphocytes % (A) 23 %; MCH 31.8 pg (25.0-35.0); MCV 93.6 fL (80.0-100.0); Mean Platelet Volume 7.7; Monocytes # (A) 0.5 k/uL (0-1.0); Monocytes % (A) 7 %; Neutrophils % (A) 59 %; Platelet Count 301 k/uL (150-450); RBC 4.78 m/uL (4.30-5.90); WBC 6.7 k/uL (3.8-10.6)
[2022-02-24 09:38] LABS: Prothrombin Time 10.5 sec (9.0-12.0)
[2022-02-24 09:39] VITALS: TEMP 98.5
[2022-02-24 09:39] LABS: Albumin 4.4 g/dL (3.5-5.0); Bilirubin, Delta 0.2 mg/dL (0.0-0.2); Bilirubin,Unconjugated 0.9 mg/dL (0.0-1.1); Total Bilirubin 1.1 mg/dL (0.2-1.3); Total Protein 7.3 g/dL (6.3-8.2)
[2022-02-24] MEDS ORDERED: ACETAMINOPHEN TAB 325 MG TAB PO PRN (10:29)
--- NOTE | 2022-02-24 12:38 | US ---
INDICATION: Patient age:Male; 72 years old; Reason for study: R74.8 ABNORMAL SERUM ENZYMES; PHH. COMPARISON: Liver ultrasound 07/07/2019 ATTENDING: Dr. Ford TECHNIQUE: Ultrasound guided percutaneous random liver biopsy using coaxial method under constant ultrasound caitlin dance. FINDINGS: The procedure was explained to the patient including risks of bleeding, bruising, infection, damage t o nearby organs and need for additional therapy including potential surgery or IR embolization. All questions were answered and consent was obtained. The previous studies were reviewed. The patient was in supine position in the ultrasound suite. The overlying skin was marked and prepped using sterile method. Timeout was taken per protocol. Following administration of local anesthesia (15cc) a 18 gauge coaxial needle was introduced into the left hep atic lobe. A single core biopsy was obtained. Postprocedure imaging did not show any color flow to mcintosh ggest active bleeding. The biopsy samples were sent in appropriate containers for lab analysis. Follo wing the procedure the needle was removed and sterile dressing was applied to the percutaneous site. Patient was taken for postprocedure observation in stable condition. IMPRESSIONS: Hepatic core biopsy as described above. Pathology results pending.
[2022-02-24 17:00] VITALS: BP 141/60; PULSE 78; RESP 14
== END 2022-02-24 14:12 | disposition home or self-care (01) ==
LOC: RADPROMAIN 08:54
PROVIDERS: ATTEND Internal Medicine Gastroenterology
DX: R74.8 Abnormal levels of other serum enzymes (principal); Z88.5 Allergy status to narcotic agent; Z79.82 Long term (current) use of aspirin; Z79.899 Other long term (current) drug therapy; Z87.891 Personal history of nicotine dependence; Z80.9 Family history of malignant neoplasm, unspecified
CPT/HCPCS: 36415; 47000; 76942; 80076; 85025; 85610

== ENCOUNTER → 2022-04-01 | Outpatient (CLI) | payer MEDICARE, OTHER ==
--- NOTE | 2022-04-01 08:54 | US ---
EXAMINATION TYPE: US abdomen complete DATE OF EXAM: 04/01/2022 COMPARISON: US Liver CLINICAL HISTORY: R10.11 RIGHT UPPER QUADRANT PAIN. Hx of liver biopsy. Hx kidney stones. TECHNIQUE: Multiple sonographic images of the abdomen are obtained. FINDINGS: EXAM MEASUREMENTS: Liver Length: 17.4 cm Gallbladder Wall: 0.2 cm CBD: 0.3 cm Spleen: 9.8 cm Right Kidney: 11.2 x 5.2 x 5.8 cm Left Kidney: 10.6 x 5.7 x 5.6 cm CONTINUOUS MINING MACHINE LODE MINER NOTES: Exam is limited due to overlying bowel gas. Pancreas: Limited visibility. Liver: Appears very coarse in echotexture. Measures upper limits. Gallbladder: Multiple hyperechoic foci seen within. Largest: 1.4 x 1.3 x 0.7 cm. Evidence for sonographic Robert's sign: No CBD: Appears wnl Spleen: Slightly limited visibility, no abnormalities seen. Right Kidney: Hyperechoic focus with posterior shadowing seen lower pole: 0.6 x 1.2 x 0.5 cm. Left Kidney: Anechoic area seen medially at the lower pole: 3.6 x 4.0 x 3.3 cm. Anechoic area seen upper pole-possible dilated collecting system: 1.6 x 2.5 x 1.1 cm. Upper IVC: Appears wnl Abd Aorta: Appears wnl IMPRESSION: 1. Hepatic steatosis. 2. Cholelithiasis. 3. Nonobstructing right renal calculus 4. Left renal cyst
== END | disposition home or self-care (01) ==
LOC: RADUSWWP 07:32
PROVIDERS: ATTEND Family Medicine
DX: K76.0 Fatty (change of) liver, not elsewhere classified (principal); K80.20 Calculus of gallbladder without cholecystitis without obstruction; N20.0 Calculus of kidney; N28.1 Cyst of kidney, acquired
CPT/HCPCS: 76700

== ENCOUNTER → 2022-09-29 | Outpatient (CLI) | payer MEDICARE, OTHER ==
[2022-09-29 15:41] LABS: African American GFR (CKD) 93.1 (60.0-200.0); Albumin 4.2 g/dL (3.8-4.9); Albumin/Globulin Ratio 1.79 (1.60-3.17); Anion Gap 9.4 mmol/L (10.00-18.00); BUN/Creat Ratio 16.65 Ratio (12.00-20.00); Blood Urea Nitrogen 15.7 mg/dL (9.0-27.0); Calcium 9.2 mg/dL (8.7-10.3); Carbon Dioxide 29.6 mmol/L (20.0-27.5); Globulin 2.3 g/dL (1.6-3.3); Non-African American GFR(CKD) 80.4 (60.0-200.0); Potassium 3.2 mmol/L (3.5-5.5); Total Bilirubin 0.7 mg/dL (0.30-1.20); Total Protein 6.5 g/dL (6.2-8.2)
[2022-09-29 17:04] LABS: Basophils # (A) 0.05 X 10*3/uL (0.00-0.10); Basophils % (A) 0.5 %; Eosinophils # (A) 0.27 X 10*3/uL (0.04-0.35); Eosinophils % (A) 2.7 %; HCT 42.7 % (39.6-50.0); HGB 14.7 g/dL (13.0-17.0); Lymphocytes # (A) 2.67 X 10*3/uL (0.90-5.00); Lymphocytes % (A) 27.1 %; MCHC 34.4 g/dL (32.0-37.0); Mean Platelet Volume 10.6 fL (9.5-12.2); Monocytes # (A) 0.86 X 10*3/uL (0.20-1.00); Monocytes % (A) 8.7 %; NRBC Per 100 WBC 0 /100 WBCS (0.0-0.0); Neutrophils # (A) 5.69 X 10*3/uL (1.80-7.70); Platelet Count 292 X 10*3/uL (140-440); RBC 4.45 X 10*6/uL (4.40-5.60); RDW 14.4 % (11.5-14.5); WBC 9.84 X 10*3/uL (4.50-10.00)
== END | disposition home or self-care (01) ==
LOC: LABWHC1 10:05
PROVIDERS: ATTEND Internal Medicine Gastroenterology
DX: K75.81 Nonalcoholic steatohepatitis (NASH) (principal)
CPT/HCPCS: 36415; 80053; 85025

== ENCOUNTER 2022-11-03 20:03 | Emergency (ER) | payer MEDICARE, OTHER ==
--- NOTE | 2022-11-03 20:23 | ED ---
Male Urogenital HPI - General Chief complaint: Urogenital Stated complaint: Hematuria Time Seen by Provider: 11/03/22 20:11 Source: patient, RN notes reviewed, old records reviewed Mode of arrival: ambulatory Limitations: no limitations - History of Present Illness Initial comments: This is a nontoxic-appearing 72-year-old male that presents to the emergency room ambulatory with complaints of hematuria that started today. He has had 4 episodes with clots. Denies any fevers. Denies any testicular pain, no penile discharge, no flank pain, no fevers. Denies any blood thinners but does take an aspirin daily. Does have a history of hypertension, kidney stones, arthritis. MD Complaint: other (hematuria today) -: days(s) (1) Severity scale (1-10): 0 Reports: denies other symptoms - Related Data Sexually active: No Home Medications Medication Instructions Recorded Confirmed Citalopram Hydrobromide [CeleXA] 20 mg PO DAILY 07/08/17 02/24/22 Multivitamin [Men's Multi-Vitamin] 1 tab PO DAILY 07/08/17 02/24/22 [place]-3 Fatty Acids/Fish Oil [Fish 1 cap PO DAILY 07/08/17 02/24/22 Oil 1,000 mg Softgel] Aspirin [Adult Low Dose Aspirin EC] 81 mg PO DAILY 02/14/22 02/24/22 Chlorthalidone [Hygroton] 25 mg PO DAILY 02/14/22 02/24/22 Cyanocobalamin (Vitamin B-12) 500 mcg PO DAILY 02/14/22 02/24/22 [Vitamin B-12] Losartan [Cozaar] 100 mg PO DAILY 02/14/22 02/24/22 Allergies Allergy/AdvReac Type Severity Reaction Status Date / Time morphine AdvReac Severe Nausea & Verified 02/24/22 09:27 Vomiting Review of Systems ROS Statement: Those systems with pertinent positive or pertinent negative responses have been documented in the HPI. ROS Other: All systems not noted in ROS Statement are negative. Past Medical History Past Medical History: Hyperlipidemia, Hypertension, Liver Disease, Osteoarthritis (OA) Additional Past Medical History / Comment(s): hx. 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 Absent: scleral icterus, conjunctival injection, periorbital swelling ENT exam: Present: mucous membranes moist Neck exam: Absent: tenderness, meningismus Respiratory exam: Present: normal lung sounds bilaterally. Absent: respiratory distress, accessory muscle use Cardiovascular Exam: Present: regular rate GI/Abdominal exam: Present: soft. Absent: distended, tenderness, guarding, rebound, rigid Extremities exam: Present: normal capillary refill. Absent: tenderness, pedal edema, calf tenderness Back exam: Present: full ROM. Absent: tenderness, CVA tenderness (R), CVA ten derness (L), paraspinal tenderness, vertebral tenderness, rash noted Neurological exam: Present: alert, oriented X3, normal gait Psychiatric exam: Present: normal affect, normal mood Skin exam: Present: warm, dry, normal color. Absent: cyanosis, diaphoretic, petechiae, pallor Course Vital Signs 11/03/22 11/03/22 11/03/22 20:05 22:36 22:37 Temperature 98.3 F 98.2 F 98.2 F Pulse Rate 80 73 73 Respiratory 20 18 18 Rate Blood Pressure 193/88 171/86 171/86 O2 Sat by Pulse 98 99 99 Oximetry Medical Decision Making - Medical Decision Making Patient presents with painless hematuria for one day. Denies any fevers. No flank pain. No nausea vomiting or diarrhea. Abdomen is soft and nontender. 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 Patient is hemodynamically stable. BUN and creatinine within normal limits. Urinalysis shows large blood with greater than 182 red cells. Ultrasound of the renals and bladder showed a suspicious 3.9 cm solid mass in the bladder worrisome for neoplastic given patient's symptoms of hematuria advised cystoscopy follow-up for further evaluation. Results were explained to the patient and his family member. They were encouraged to follow up with urology tomorrow. I did stress the importance for follow-up and concern for neoplastic process. Patient family member are agreeable and state understanding. Case discussed with Dr. Doan History of hypertension, liver disease, osteoarthritis, hyperlipidemia, kidney stones, former smoker Was pt. sent in by a medical professional or institution (EMILY Nguyen, TYPE PROOF REPRODUCER, urgent care, hospital, or skilled nursing...) When possible be specific @ -No Did you speak to anyone other than the patient for history (EMS, parent, family, police, friend...)? What history was obtained from this source @ -No Did you review nursing and triage notes (agree or disagree)? Why? @ -I reviewed and agree with nursing and triage notes Were old charts reviewed (outside hosp., previous admission, EMS record, old EKG, old radiological studies, urgent care reports/EKG's, skilled nursing records)? Report findings @ -No old charts were reviewed Differential Diagnosis (chest pain, altered mental status, abdominal pain women, abdominal pain men, vaginal bleeding, weakness, fever, dyspnea, syncope, he adache, dizziness, GI bleed, back pain, seizure, CVA, palpatations, mental health, musculoskeletal)? @ -Kidney stone, cystitis, bladder neoplasm, pyelonephritis EKG interpreted by me (3pts min.). @ -n/a X-rays interpreted by me (1pt min.). @ -None done CT interpreted by me (1pt min.). @ -None done U/S interpreted by me (1pt. min.). @ -Yes there is a approximately 4 cm mass within the bladder What testing was considered but not performed or refused? (CT, X-rays, U/S, labs)? Why? @ -None What meds were considered but not given or refused? Why? @ -None Did you discuss the management of the patient with other professionals (miguelangel lawsononals i.e. EMILY Nguyen, TYPE PROOF REPRODUCER, lab, RT, psych nurse, sr. social media & mobile manager, human resources office assistant, teacher, network security officer, gearcase assembler)? Give summary @ -No Was smoking cessation discussed for >3mins.? @ -No Was critical care preformed (if so, how long)? @ -No Were there social determinants of health that impacted care today? How? (Homelessness, low income, unemployed, alcoholism, drug addiction, transportati on, low edu. Level, literacy, decrease access to med. care, [place] [facility], rehab)? @ -No Was there de-escalation of care discussed even if they declined (Discuss DNR or withdrawal of care, Hospice)? DNR status @ -No What co-morbidities impacted this encounter? (DM, HTN, Smoking, COPD, CAD, Cancer, CVA, ARF, Chemo, Hep., AIDS, mental health diagnosis, sleep apnea, morbid obesity)? @ -Hypertension, disease, osteoarthritis, hyperlipidemia, kidney stones, former smoker Was patient admitted / discharged? Hospital course, mention meds given and route, prescriptions, significant lab abnormalities, going to OR and other pertinent info. @ -discharged Undiagnosed new problem with uncertain prognosis? @ -No Drug Therapy requiring intensive monitoring for toxicity (Heparin, Nitro, Insulin, Cardizem)? @ -No Were any procedures done? @ -No Diagnosis/symptom? @ -Hematuria with bladder mass Acute, or Chronic, or Acute on Chronic? @ -Acute Uncomplicated (without systemic symptoms) or Complicated (systemic symptoms)? @ -Uncomplicated Side effects of treatment? @ -No Exacerbation, Progression, or Severe Exacerbation? @ -No Poses a threat to life or bodily function? How? (Chest pain, [place], [place], pneumonia, PE, COPD, DKA, ARF, appy, cholecystitis, CVA, Diverticulitis, Homicidal, Suicidal, threat to staff... and all critical care pts) @ -No - Lab Data Result diagrams: 11/03/22 20:28 11/03/22 20:28 Lab Results 11/03/22 11/03/22 11/03/22 Range/Units 20:17 20:28 20:28 WBC 13.1 H (3.8-10.6) k/uL RBC 4.40 (4.30-5.90) m/uL Hgb 15.7 (13.0-17.5) gm/dL Hct 42.3 (39.0-53.0) % MCV 96.0 (80.0-100.0) fL MCH 35.6 H (25.0-35.0) pg MCHC 37.1 H (31.0-37.0) g/dL RDW 14.1 (11.5-15.5) % Plt Count 332 (150-450) k/uL MPV 7.6 Neutrophils % 69 % Lymphocytes % 18 % Monocytes % 5 % Eosinophils % 6 % Basophils % 1 % Neutrophils # 9.1 H (1.3-7.7) k/uL Lymphocytes # 2.4 (1.0-4.8) k/uL Monocytes # 0.6 (0-1.0) k/uL Eosinophils # 0.8 H (0-0.7) k/uL Basophils # 0.1 (0-0.2) k/uL Sodium 134 L (137-145) mmol/L Potassium 4.3 (3.5-5.1) mmol/L Chloride 97 L (98-107) mmol/L Carbon Dioxide 27 (22-30) mmol/L Anion Gap 10 mmol/L BUN 20 (9-20) mg/dL Creatinine 0.92 (0.66-1.25) mg/dL Est GFR (CKD-EPI)AfAm >90 (>60 ml/min/1.73 sqM) Est GFR (CKD-EPI)NonAf 83 (>60 ml/min/1.73 sqM) Glucose 105 H (74-99) mg/dL Calcium 9.5 (8.4-10.2) mg/dL Total Bilirubin 0.7 (0.2-1.3) mg/dL AST 82 H (17-59) U/L ALT 101 H (4-49) U/L Alkaline Phosphatase 109 (38-126) U/L Total Protein 7.3 (6.3-8.2) g/dL Albumin 4.2 (3.5-5.0) g/dL Urine Color Dark Red Urine Appearance Turbid (Clear) Urine pH 6.5 (5.0-8.0) Ur Specific [place] 1.015 (1.001-1.035) Urine Protein 1+ H (Negative) Urine Glucose (UA) Negative (Negative) Urine Ketones Negative (Negative) Urine Blood Large H (Negative) Urine Nitrite Negative (Negative) Urine Bilirubin Negative (Negative) Urine Urobilinogen <2.0 (<2.0) mg/dL Ur Leukocyte Esterase Small H (Negative) Urine RBC >182 H (0-5) /hpf Urine WBC 22 H (0-5) /hpf Ur Squamous Epith Cells 2 (0-4) /hpf Disposition Clinical Impression: Bladder mass, Hematuria Disposition: HOME SELF-CARE Condition: Good Additional Instructions: Ultrasound of your bladder today shows a suspicious new 3.9 cm solid mass in the bladder worrisome for neoplastic. It is recommended to have a cystoscopy therefore please follow-up with Dr. Agarwal this week. Return to the emergency room with any new or concerning symptoms including inability to urinate, pain or fevers. Is patient prescribed a controlled substance at d/c from ED?: No Referrals: Catalino Smith DO [Primary Care Provider] - 1-2 days Earle Agarwal MD [STAFF PHYSICIAN] - 1-2 days Time of Disposition: 22:24
[2022-11-03 20:54] LABS: Basophils # (A) 0.1 k/uL (0-0.2); Basophils % (A) 1 %; Eosinophils # (A) 0.8 k/uL (0-0.7); Eosinophils % (A) 6 %; HCT 42.3 % (39.0-53.0); HGB 15.7 gm/dL (13.0-17.5); Lymphocytes # (A) 2.4 k/uL (1.0-4.8); Lymphocytes % (A) 18 %; MCH 35.6 pg (25.0-35.0); MCHC 37.1 g/dL (31.0-37.0); Mean Platelet Volume 7.6; Monocytes # (A) 0.6 k/uL (0-1.0); Monocytes % (A) 5 %; Neutrophils # (A) 9.1 k/uL (1.3-7.7); Neutrophils % (A) 69 %; Platelet Count 332 k/uL (150-450); RDW 14.1 % (11.5-15.5); WBC 13.1 k/uL (3.8-10.6)
[2022-11-03 21:03] LABS: ALT 101 U/L (4-49); African American GFR (CKD) >90 (>60 ml/min/1.73 sqM); Albumin 4.2 g/dL (3.5-5.0); Anion Gap 10 mmol/L; Blood Urea Nitrogen 20 mg/dL (9-20); Calcium 9.5 mg/dL (8.4-10.2); Carbon Dioxide 27 mmol/L (22-30); Chloride 97 mmol/L (98-107); Glucose 105 mg/dL (74-99); Non-African American GFR(CKD) 83 (>60 ml/min/1.73 sqM); Sodium 134 mmol/L (137-145); Total Bilirubin 0.7 mg/dL (0.2-1.3); Total Protein 7.3 g/dL (6.3-8.2)
[2022-11-03 21:15] LABS: AST 82 U/L (17-59); Alkaline Phosphatase 109 U/L (38-126); Potassium 4.3 mmol/L (3.5-5.1)
[2022-11-03 21:17] LABS: Appearance,Urine Turbid (Clear); Bilirubin,Urine Negative (Negative); Blood,Urine Large (Negative); Color,Urine Dark Red; Glucose,Urine (UA) Negative (Negative); Ketones,Urine Negative (Negative); Leukocyte Esterase,Urine Small (Negative); Nitrite,Urine Negative (Negative); PH, Urine 6.5 (5.0-8.0); Protein,Urine 1+ (Negative); RBC,Urine >182 /hpf (0-5); Squamous Epithelial Cell,Urine 2 /hpf (0-4); Urobilinogen,Urine <2.0 mg/dL (<2.0); WBC,Urine 22 /hpf (0-5)
[2022-11-03 21:18] LABS: Specific Gravity,Urine 1.015 (1.001-1.035)
--- NOTE | 2022-11-03 22:03 | US ---
EXAMINATION TYPE: US renals and bladder DATE OF EXAM: 11/03/2022 COMPARISON: Ultrasound ABD complete - 04/03/22 CLINICAL INDICATION: Male, 72 years old with history of uti, back pain, hx of kidney stones; No pain, but hematuria and inc WBC EXAM MEASUREMENTS: Right Kidney: 11.1 x 5.3 x 5.8 cm Left Kidney: 10.6 x 5.1 x 6.5 cm Right Kidney: Echogenic focus seen in inf pole measuring 0.9 x 0.9 x 0.4cm Left Kidney: Cyst seen in mid/inf pole measuring 3.2 x 3.5 x 3.1cm Bladder: Echogenic area with vascularity visualized in bladder measuring 3.9 x 3.5 x 2.0cm on the rt side. It was not mobile when pt rolled on side. Bilateral Jets seen: Yes There is no evidence for hydronephrosis at this point in time. Possible nonobstructing 4 mm calculus lower pole right kidney redemonstrated and unchanged from prior. There is 3.5 cm simple appearing thi n-walled cyst in the left kidney lower pole level redemonstrated. The urinary bladder shows suspicio us nonmobile peripheral oval hypervascular mass measuring 3.9 x 2.0 x 3.5 cm. Possible prostate but s olid mass or neoplasm needs to be excluded patient's symptoms of hematuria . Bilateral ureteral jets are seen. IMPRESSION: Suspicion for new 3.9 cm solid mass in bladder worrisome for neoplastic given patient's s ymptoms or hematuria. Advise cystoscopy follow-up to further evaluate.
[2022-11-03 22:38] VITALS: BP 171/86; PULSE 73; RESP 18; TEMP 98.2
== END 2022-11-03 22:38 | disposition home or self-care (01) ==
LOC: EC 20:03
DX: N28.1 Cyst of kidney, acquired (principal); E78.5 Hyperlipidemia, unspecified; I10 Essential (primary) hypertension; M19.90 Unspecified osteoarthritis, unspecified site; F32.A Depression, unspecified; Z79.899 Other long term (current) drug therapy; Z79.82 Long term (current) use of aspirin; Z88.5 Allergy status to narcotic agent; Z87.891 Personal history of nicotine dependence
CPT/HCPCS: 36415; 76770; 80053; 81001; 85025; 99284

== ENCOUNTER 2022-11-09 13:40 | Emergency (ER) | payer MEDICARE, OTHER ==
[2022-11-09] MEDS ORDERED: methylPREDNISolone SOD SUCCI 125 MG/2 ML VIAL IV STA (14:27)
[2022-11-09] MEDS ORDERED: IPRATROPIUM 0.5 MG/2.5 ML NEBU INHALATION STA (14:27)
[2022-11-09] MEDS ORDERED: ALBUTEROL NEBULIZED 2.5 MG/3 ML INHALATION STA (14:27)
--- NOTE | 2022-11-09 14:40 | ED ---
General Adult HPI - General Source: patient, RN notes reviewed, old records reviewed Mode of arrival: ambulatory Limitations: no limitations <Madi Stone - Last Filed: 11/09/22 15:55> <Bhavesh Payne - Last Filed: 11/09/22 18:09> - General Chief complaint: Shortness of Breath Stated complaint: Cough Time Seen by Provider: 11/09/22 14:13 - History of Present Illness Initial comments: 72-year-old male with cough and dyspnea over the past 2 months. Patient has been evaluated by his primary care physician and his boat repairer on multiple occasions. He's been diagnosed with asthma. He's been having increased cough and wheezing. He believes that his symptoms are worsening. No measured fever. No central chest pain. Patient does also have sensation of a sore throat and swelling in his airway. (Madi Stone) - Related Data Home Medications Medication Instructions Recorded Confirmed Citalopram Hydrobromide [CeleXA] 20 mg PO DAILY 07/08/17 02/24/22 Multivitamin [Men's Multi-Vitamin] 1 tab PO DAILY 07/08/17 02/24/22 [place]-3 Fatty Acids/Fish Oil [Fish 1 cap PO DAILY 07/08/17 02/24/22 Oil 1,000 mg Softgel] Aspirin [Adult Low Dose Aspirin EC] 81 mg PO DAILY 02/14/22 02/24/22 Chlorthalidone [Hygroton] 25 mg PO DAILY 02/14/22 02/24/22 Cyanocobalamin (Vitamin B-12) 500 mcg PO DAILY 02/14/22 02/24/22 [Vitamin B-12] Losartan [Cozaar] 100 mg PO DAILY 02/14/22 02/24/22 Allergies Allergy/AdvReac Type Severity Reaction Status Date / Time morphine AdvReac Severe Nausea & Verified 11/09/22 14:01 Vomiting Review of Systems ROS Other: All systems not noted in ROS Statement are negative. <Madi Stone - Last Filed: 11/09/22 15:55> ROS Other: All systems not noted in ROS Statement are negative. <Bhavesh Payne - Last Filed: 11/09/22 18:09> ROS Statement: Those systems with pertinent positive or pertinent negative responses have been documented in the HPI. Past Medical History Past Medical History: Hyperlipidemia, Hypertension, Liver Disease, Osteoarthritis (OA) Additional Past Medical History / Comment(s): hx. 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,ORIF left ankle, arthroscopy both knees, sinus surg, hip replacement, liver biopsy Past Anesthesia/Blood Transfusion Reactions: No Reported Reaction Past Psychological History: Depression Smoking Status: Former smoker Past Alcohol Use History: Rare Past Drug Use History: None Reported - Past Family History Sister(s) Family Medical History: Cancer <Madi Stone - Last Filed: 11/09/22 15:55> General Exam Limitations: no limitations General appearance: alert, in no apparent distress Head exam: Present: atraumatic, normocephalic Eye exam: Present: normal appearance, PERRL ENT exam: Present: mucous membranes dry Respiratory exam: Present: respiratory distress, wheezes, stridor Cardiovascular Exam: Present: regular rate, normal rhythm GI/Abdominal exam: Present: soft. Absent: distended, tenderness Extremities exam: Present: normal inspection, normal capillary refill. Absent: pedal edema, calf tenderness Neurological exam: Present: alert, oriented X3, CN II-XII intact. Absent: motor sensory deficit Psychiatric exam: Present: normal affect, normal mood Skin exam: Present: warm, dry, intact. Absent: cyanosis, diaphoretic <Madi Stone - Last Filed: 11/09/22 15:55> Course <Madi Stone - Last Filed: 11/09/22 15:55> <Bhavesh Payne - Last Filed: 11/09/22 18:09> Vital Signs 11/09/22 11/09/22 14:01 17:50 Temperature 97.6 F Pulse Rate 99 83 Respiratory 18 Rate Blood Pressure 153/74 O2 Sat by Pulse 100 Oximetry - Reevaluation(s) Reevaluation #1: 11/09/22 1600 Patient care signed out to Dr. Payne at shift change (Madi Stone) 11/09/22 18:03 Patient states that his dyspnea/symptoms have improved with the DuoNeb treatment that he was given in the ED. Patient is currently alert and breathing comfortably with a normal room air oxygen saturation. Patient and are aware the patient's test results. I have discussed the option to admit the patient to the hospital for further evaluation and treatment, but the patient declines, stating that he wishes to go home. states that the patient has an appointment scheduled to see his boat repairer in 2 days. Patient and were counseled about asthma/asthma exacerbations, and they were clearly explained return and follow-up instructions. Patient was instructed to follow up with his boat repairer in 2 days as scheduled. Patient states that he is currently on a course of oral steroids, and he also has an albuterol inhaler and cough medication at home. Will discharge patient home with his at this time. Patient and feel comfortable with this plan. (Bhavesh Payne) EKG Findings - EKG Comments: EKG Findings:: Sinus rhythm rate of 82, NV interval 141, QRS duration 97, QTC 409, no ST segment changes. <Madi Stone - Last Filed: 11/09/22 15:55> Medical Decision Making - Lab Data Result diagrams: 11/09/22 15:10 11/09/22 15:10 <Madi Stone - Last Filed: 11/09/22 15:55> - Lab Data Result diagrams: 11/09/22 15:10 11/09/22 15:10 <Bhavesh Payne - Last Filed: 11/09/22 18:09> - Medical Decision Making Was pt. sent in by a medical professional or institution (EMILY Nguyen, ASSISTANT MAINTENANCE MANAGER, urgent care, hospital, or halfway...) When possible be specific @ -No Did you speak to anyone other than the patient for history (EMS, parent, family, police, friend...)? What history was obtained from this source @ -History was also obtained from the patient's . Did you review nursing and triage notes (agree or disagree)? Why? @ -I reviewed and agree with nursing and triage notes Were old charts reviewed (outside hosp., previous admission, EMS record, old EKG, old radiological studies, urgent care reports/EKG's, halfway records)? Report findings @ -No old charts were reviewed Differential Diagnosis (chest pain, altered mental status, abdominal pain women, abdominal pain men, vaginal bleeding, weakness, fever, dyspnea, syncope, headache, dizziness, GI bleed, back pain, seizure, CVA, palpatations, mental health, musculoskeletal)? @ -Differential Dyspnea: Coronary syndrome, arrhythmia, tamponade, asthma, COPD, bronchospasm, bronchitis, viral illness, pulmonary embolism, pneumonia, pneumothorax, pulmonary effusion, laryngitis, tracheitis, abscess, mass, malignancy, anemia, neuromuscular, this is not meant to be an all-inclusive list. EKG interpreted by me (3pts min.). @ -As above X-rays interpreted by me (1pt min.). @ -Chest x-ray was reviewed myself, and I agree with the radiologist's interpretation as above. CT interpreted by me (1pt min.). @ -CT soft tissue neck was reviewed myself, and I agree with the radiologist's interpretation as above. U/S interpreted by me (1pt. min.). @ -None done What testing was considered but not performed or refused? (CT, X-rays, U/S, labs)? Why? @ -None What meds were considered but not given or refused? Why? @ -None Did you discuss the management of the patient with other professionals (professionals i.e. , PA, ASSISTANT MAINTENANCE MANAGER, lab, RT, psych nurse, child protective services social worker, call circuit worker, teacher, accounting officer, case reviewer)? Give summary @ -No Was smoking cessation discussed for >3mins.? @ -No Was critical care preformed (if so, how long)? @ -No Were there social determinants of health that impacted care today? How? (Homelessness, low income, unemployed, alcoholism, drug addiction, transportation, low edu. Level, literacy, decrease access to med. care, long term, rehab)? @ -No Was there de-escalation of care discussed even if they declined (Discuss DNR or withdrawal of care, Hospice)? DNR status @ -No What co-morbidities impacted this encounter? (DM, HTN, Smoking, COPD, CAD, Cancer, CVA, ARF, Chemo, Hep., AIDS, mental health diagnosis, sleep apnea, morbid obesity)? @ -None Was patient admitted / discharged? Hospital course, mention meds given and route, prescriptions, significant lab abnormalities, going to OR and other pertinent info. @ -Patient states that his dyspnea/symptoms have improved with the DuoNeb treatment that he was given in the ED. Patient is currently alert and breathing comfortably with a normal room air oxygen saturation. Patient's d-dimer, troponin and BNP are within normal limits. Patient's chest x-ray and soft tissue neck CT are negative. Patient and are aware the patient's test results. I have discussed the option to admit the patient to the hospital for further evaluation and treatment, but the patient declines, stating that he wishes to go home. states that the patient has an appointment scheduled to see his boat repairer in 2 days. Patient and were counseled about asthma/asthma exacerbations, and they were clearly explained return and follow- up instructions. Patient was instructed to follow up with his boat repairer in 2 days as scheduled. Patient states that he is currently on a course of oral steroids, and he also has an albuterol inhaler and cough medication at home. Will discharge patient home with his at this time. Patient and feel comfortable with this plan. Undiagnosed new problem with uncertain prognosis? @ -No Drug Therapy requiring intensive monitoring for toxicity (Heparin, Nitro, Insulin, Cardizem)? @ -No Were any procedures done? @ -No Diagnosis/symptom? @ -Asthma exacerbation Acute, or Chronic, or Acute on Chronic? @ -Acute on chronic Uncomplicated (without systemic symptoms) or Complicated (systemic symptoms)? @ -default Side effects of treatment? @ -No Exacerbation, Progression, or Severe Exacerbation? @ -No Poses a threat to life or bodily function? How? (Chest pain, USA, NC, pneumonia, PE, COPD, DKA, ARF, appy, cholecystitis, CVA, Diverticulitis, Homicidal, Suicidal, threat to staff... and all critical care pts) @ -No (Bhavesh Payne) - Lab Data Lab Results 11/09/22 11/09/22 11/09/22 Range/Units 15:10 15:10 15:10 WBC 11.0 H (3.8-10.6) k/uL RBC 4.44 (4.30-5.90) m/uL Hgb 14.9 (13.0-17.5) gm/dL Hct 42.0 (39.0-53.0) % MCV 94.5 (80.0-100.0) fL MCH 33.6 (25.0-35.0) pg MCHC 35.6 (31.0-37.0) g/dL RDW 13.6 (11.5-15.5) % Plt Count 257 (150-450) k/uL MPV 7.6 Neutrophils % 71 % Lymphocytes % 11 % Monocytes % 5 % Eosinophils % 11 % Basophils % 1 % Neutrophils # 7.8 H (1.3-7.7) k/uL Lymphocytes # 1.2 (1.0-4.8) k/uL Monocytes # 0.6 (0-1.0) k/uL Eosinophils # 1.2 H (0-0.7) k/uL Basophils # 0.1 (0-0.2) k/uL PT 9.8 (9.0-12.0) sec INR 0.9 (<1.2) APTT 21.0 L (22.0-30.0) sec D-Dimer 0.57 (<0.60) mg/L FEU Sodium 135 L (137-145) mmol/L Potassium 3.6 (3.5-5.1) mmol/L Chloride 99 (98-107) mmol/L Carbon Dioxide 27 (22-30) mmol/L Anion Gap 9 mmol/L BUN 16 (9-20) mg/dL Creatinine 0.73 (0.66-1.25) mg/dL Est GFR (CKD-EPI)AfAm >90 (>60 ml/min/1.73 sqM) Est GFR (CKD-EPI)NonAf >90 (>60 ml/min/1.73 sqM) Glucose 86 (74-99) mg/dL Plasma Lactic Acid David (0.7-2.0) mmol/L Calcium 9.4 (8.4-10.2) mg/dL Total Bilirubin 0.9 (0.2-1.3) mg/dL AST 86 H (17-59) U/L ALT 106 H (4-49) U/L Alkaline Phosphatase 87 (38-126) U/L Troponin I (0.000-0.034) ng/mL NT-Pro-B Natriuret Pep pg/mL Total Protein 7.0 (6.3-8.2) g/dL Albumin 4.2 (3.5-5.0) g/dL 11/09/22 11/09/22 11/09/22 Range/Units 15:10 15:10 15:10 WBC (3.8-10.6) k/uL RBC (4.30-5.90) m/uL Hgb (13.0-17.5) gm/dL Hct (39.0-53.0) % MCV (80.0-100.0) fL MCH (25.0-35.0) pg MCHC (31.0-37.0) g/dL RDW (11.5-15.5) % Plt Count (150-450) k/uL MPV Neutrophils % % Lymphocytes % % Monocytes % % Eosinophils % % Basophils % % Neutrophils # (1.3-7.7) k/uL Lymphocytes # (1.0-4.8) k/uL Monocytes # (0-1.0) k/uL Eosinophils # (0-0.7) k/uL Basophils # (0-0.2) k/uL PT (9.0-12.0) sec INR (<1.2) APTT (22.0-30.0) sec D-Dimer (<0.60) mg/L FEU Sodium (137-145) mmol/L Potassium (3.5-5.1) mmol/L Chloride (98-107) mmol/L Carbon Dioxide (22-30) mmol/L Anion Gap mmol/L BUN (9-20) mg/dL Creatinine (0.66-1.25) mg/dL Est GFR (CKD-EPI)AfAm (>60 ml/min/1.73 sqM) Est GFR (CKD-EPI)NonAf (>60 ml/min/1.73 sqM) Glucose (74-99) mg/dL Plasma Lactic Acid David 1.5 (0.7-2.0) mmol/L Calcium (8.4-10.2) mg/dL Total Bilirubin (0.2-1.3) mg/dL AST (17-59) U/L ALT (4-49) U/L Alkaline Phosphatase (38-126) U/L Troponin I <0.012 (0.000-0.034) ng/mL NT-Pro-B Natriuret Pep 23 pg/mL Total Protein (6.3-8.2) g/dL Albumin (3.5-5.0) g/dL - Radiology Data Chest x-ray: No acute cardiopulmonary disease/process. CT soft tissue neck with IV contrast: 1. No acute abnormality of the neck soft tissues. 2. Multilevel degenerative disc disease of the cervical spine. 3. Emphysematous changes. (Bhavesh Payne) Disposition <Madi Stone Betito - Last Filed: 11/09/22 15:55> Is patient prescribed a controlled substance at d/c from ED?: No Time of Disposition: 18:09 <Bhavesh Payne - Last Filed: 11/09/22 18:09> Clinical Impression: Asthma with acute exacerbation Disposition: HOME SELF-CARE Condition: Stable Instructions (If sedation given, give patient instructions): Asthma (ED) Additional Instructions: Return to the ER immediately should you develop increased shortness of breath, chest pain, a fever, vomiting, feeling dizzy or faint, or new or worsening symptoms. Follow up closely with your primary care provider. Follow up with your boat repairer in 2 days as scheduled. Referrals: Catalino Smith DO [Primary Care Provider] - 1-2 days Radha Rocha MD [STAFF PHYSICIAN] - 1-2 days
--- NOTE | 2022-11-09 15:07 | XR ---
EXAMINATION TYPE: XR chest 2V DATE OF EXAM: 11/09/2022 2:50 PM COMPARISON: Chest radiographs from 09/12/2022 TECHNIQUE: XR chest 2V Frontal and lateral views of the chest. CLINICAL INDICATION:Male, 72 years old with history of difficulty breathing; FINDINGS: Lungs/Pleura: There is no evidence of pleural effusion, focal consolidation, or pneumothorax. Pulmonary vascularity: Unremarkable. Heart/mediastinum: Cardiomediastinal silhouette is unremarkable. Atherosclerotic calcifications are seen in the aorta. Musculoskeletal: No acute osseous pathology. IMPRESSION: No acute cardiopulmonary disease/process.
[2022-11-09 15:39] LABS: Basophils # (A) 0.1 k/uL (0-0.2); Basophils % (A) 1 %; Eosinophils # (A) 1.2 k/uL (0-0.7); Eosinophils % (A) 11 %; HGB 14.9 gm/dL (13.0-17.5); Lymphocytes # (A) 1.2 k/uL (1.0-4.8); Lymphocytes % (A) 11 %; MCH 33.6 pg (25.0-35.0); MCHC 35.6 g/dL (31.0-37.0); MCV 94.5 fL (80.0-100.0); Mean Platelet Volume 7.6; Monocytes # (A) 0.6 k/uL (0-1.0); Monocytes % (A) 5 %; Neutrophils # (A) 7.8 k/uL (1.3-7.7); Neutrophils % (A) 71 %; Platelet Count 257 k/uL (150-450); RBC 4.44 m/uL (4.30-5.90); RDW 13.6 % (11.5-15.5)
[2022-11-09 15:40] LABS: ALT 106 U/L (4-49); AST 86 U/L (17-59); African American GFR (CKD) >90 (>60 ml/min/1.73 sqM); Albumin 4.2 g/dL (3.5-5.0); Alkaline Phosphatase 87 U/L (38-126); Anion Gap 9 mmol/L; Blood Urea Nitrogen 16 mg/dL (9-20); Calcium 9.4 mg/dL (8.4-10.2); Carbon Dioxide 27 mmol/L (22-30); Chloride 99 mmol/L (98-107); Glucose 86 mg/dL (74-99); Non-African American GFR(CKD) >90 (>60 ml/min/1.73 sqM); Potassium 3.6 mmol/L (3.5-5.1); Sodium 135 mmol/L (137-145); Total Bilirubin 0.9 mg/dL (0.2-1.3)
[2022-11-09 15:43] LABS: INR 0.9 (<1.2); Prothrombin Time 9.8 sec (9.0-12.0)
--- NOTE | 2022-11-09 17:34 | CT ---
EXAMINATION TYPE: CT soft tissue neck w con DATE OF EXAM: 11/09/2022 5:23 PM COMPARISON: No relevant priors HISTORY: cough and throat swelling x4 months CT DLP: 405.7 mGycm Automated exposure control for dose reduction was used. CONTRAST: CT scan of the neck is performed following with IV Contrast, patient injected with 100 mL of Isovue 3 00. Axial images are obtained, coronal and sagittal reformatted images are reviewed. FINDINGS: Airway: No gross abnormality seen. Parotid/submandibular glands: No gross abnormality seen. Carotid/Vascular Structures: Scattered calcified atherosclerosis. Osseous Structures: Degenerative changes of the cervical spine. Disc osteophyte complex that C6-C7 re sults in at least mild central spinal canal narrowing. Other: Mild paranasal disease of the maxillary sinuses bilaterally. Mastoid air cells are clear. Jovanny atous changes of the lung apices bilaterally. IMPRESSION: 1. No acute abnormality of the neck soft tissues. 2. Multilevel degenerative disc disease of the cervical spine. 3. Emphysematous changes.
[2022-11-09 18:34] VITALS: BP 164/84; PULSE 80; RESP 18; TEMP 98.2
== END 2022-11-09 18:33 | disposition home or self-care (01) ==
LOC: EC 13:40
DX: J45.901 Unspecified asthma with (acute) exacerbation (principal); I10 Essential (primary) hypertension; E78.5 Hyperlipidemia, unspecified; F32.A Depression, unspecified; Z79.82 Long term (current) use of aspirin; Z79.899 Other long term (current) drug therapy; Z79.891 Long term (current) use of opiate analgesic; Z88.5 Allergy status to narcotic agent
CPT/HCPCS: 36415; 94640; 93005; 85379; 83880; 80053; 83605; 84484; 85025; 85610; 85730; 71046; 70491; 99285; 96374; J2930; Q9967

== ENCOUNTER → 2023-03-26 | Outpatient (CLI) | payer MEDICARE, OTHER ==
[2023-03-26 15:09] LABS: ALT 125 U/L (10-49); AST 92 U/L (14-35); Albumin 4.6 d/dL (3.8-4.9); Albumin/Globulin Ratio 2.19 Ratio (1.60-3.17); Alkaline Phosphatase 83 U/L (41-126); Blood Urea Nitrogen 12.6 mg/dL (9.0-27.0); Calcium 9.6 mg/dL (8.7-10.3); Chloride 100 mmol/L (96-109); Globulin 2.1 d/dL (1.6-3.3); Glucose 114 mg/dL (70-110); Potassium 2.9 mmol/L (3.5-5.5); Sodium 140 mmol/L (135-145); Total Protein 6.7 d/dL (6.2-8.2)
[2023-03-26 16:00] LABS: Basophils # (A) 0.12 X 10*3/uL (0.00-0.10); Basophils % (A) 1.5 %; Eosinophils # (A) 0.56 X 10*3/uL (0.04-0.35); Eosinophils % (A) 7.2 %; HGB 14.6 d/dL (13.0-17.0); Lymphocytes # (A) 1.91 X 10*3/uL (0.90-5.00); Lymphocytes % (A) 24.5 %; MCH 31.3 pg (27.0-32.0); MCHC 35.6 d/dL (32.0-37.0); Mean Platelet Volume 10.8 FL (9.5-12.2); Monocytes # (A) 0.68 X 10*3/uL (0.20-1.00); Monocytes % (A) 8.7 %; NRBC Per 100 WBC 0 X 10*3/uL (0.00-0.01); Neutrophils # (A) 4.48 X 10*3/uL (1.80-7.70); Neutrophils % (A) 57.6 %; Platelet Count 332 X 10*3/uL (140-440); RBC 4.66 X 10*6/uL (4.40-5.60); RDW 13.2 % (11.5-14.5); WBC 7.79 X 10*3/uL (4.50-10.00)
== END | disposition home or self-care (01) ==
LOC: LABWHC1 10:04
PROVIDERS: ATTEND Internal Medicine Gastroenterology
DX: K75.81 Nonalcoholic steatohepatitis (NASH) (principal)
CPT/HCPCS: 36415; 80053; 85025

== ENCOUNTER → 2023-04-01 | Outpatient (CLI) | payer MEDICARE, OTHER ==
[2023-04-01 16:41] LABS: ALT 134 U/L (10-49); AST 104 U/L (14-35); Albumin 4.7 d/dL (3.8-4.9); Albumin/Globulin Ratio 1.96 Ratio (1.60-3.17); Alkaline Phosphatase 85 U/L (41-126); BUN/Creat Ratio 17.22 Ratio (12.00-20.00); Blood Urea Nitrogen 15.5 mg/dL (9.0-27.0); Calcium 9.7 mg/dL (8.7-10.3); Carbon Dioxide 25.7 mmol/L (21.6-31.8); Chloride 99 mmol/L (96-109); Globulin 2.4 d/dL (1.6-3.3); Glucose 106 mg/dL (70-110); Potassium 3.2 mmol/L (3.5-5.5); Sodium 140 mmol/L (135-145); Total Protein 7.1 d/dL (6.2-8.2)
== END | disposition home or self-care (01) ==
LOC: LABWHC1 09:18
PROVIDERS: ATTEND Internal Medicine Gastroenterology
DX: E87.6 Hypokalemia (principal)
CPT/HCPCS: 36415; 80053

== ENCOUNTER → 2023-04-16 | Outpatient (CLI) | payer MEDICARE, OTHER | END | disposition home or self-care (01) | LOC: LABWHC1 15:27 | PROVIDERS: ATTEND Internal Medicine Gastroenterology | DX: E87.6 Hypokalemia (principal) ==

== ENCOUNTER → 2023-05-28 | Outpatient (CLI) | payer MEDICARE, OTHER ==
[2023-05-29 02:21] LABS: BUN/Creat Ratio 22.14 Ratio (12.00-20.00); Blood Urea Nitrogen 15.5 mg/dL (9.0-27.0); Calcium 10.1 mg/dL (8.7-10.3); Chloride 99 mmol/L (96-109); Glucose 111 mg/dL (70-110); Potassium 3.9 mmol/L (3.5-5.5); Sodium 141 mmol/L (135-145)
== END | disposition home or self-care (01) ==
LOC: LABWHC1 13:51
PROVIDERS: ATTEND Internal Medicine Gastroenterology
DX: E87.6 Hypokalemia (principal)
CPT/HCPCS: 36415; 80048

== ENCOUNTER → 2023-07-20 | Outpatient (CLI) | payer MEDICARE, OTHER ==
[2023-07-21 02:32] LABS: BUN/Creat Ratio 15.78 Ratio (12.00-20.00); Blood Urea Nitrogen 14.2 mg/dL (9.0-27.0); Calcium 10.2 mg/dL (8.7-10.3); Carbon Dioxide 27.5 mmol/L (21.6-31.8); Chloride 99 mmol/L (96-109); Glucose 149 mg/dL (70-110); Potassium 3.9 mmol/L (3.5-5.5); Sodium 140 mmol/L (135-145)
== END | disposition home or self-care (01) ==
LOC: LABWHC1 12:15
PROVIDERS: ATTEND Internal Medicine Gastroenterology
DX: E87.6 Hypokalemia (principal)
CPT/HCPCS: 36415; 80048

== ENCOUNTER 2024-01-07 11:10 | Emergency (ER) | payer MEDICARE, OTHER ==
[2024-01-07 11:17] VITALS: RESP 16
--- NOTE | 2024-01-07 11:29 | ED ---
Upper Extremity HPI - General Chief Complaint: Extremity Injury, Upper Stated Complaint: R Thumb Injury Time Seen by Provider: 01/07/24 11:19 Source: patient, RN notes reviewed Mode of arrival: ambulatory Limitations: no limitations - History of Present Illness Initial Comments: This is a 73-year-old male who presents to the emergency department for a right thumb injury. States that he jammed this in a car door a couple of hours prior to arrival. States that he has developed increasing pain and wants to make sure it is not broken. He has also had a large amount of bleeding. Unsure when his last vaccine was. MD Complaint: Injury to:: right, finger - Related Data Home Medications Medication Instructions Recorded Confirmed Citalopram Hydrobromide [CeleXA] 20 mg PO DAILY 07/08/17 02/24/22 Multivitamin [Men's Multi-Vitamin] 1 tab PO DAILY 07/08/17 02/24/22 [place]-3 Fatty Acids/Fish Oil [Fish 1 cap PO DAILY 07/08/17 02/24/22 Oil 1,000 mg Softgel] Aspirin [Adult Low Dose Aspirin EC] 81 mg PO DAILY 02/14/22 02/24/22 Chlorthalidone [Hygroton] 25 mg PO DAILY 02/14/22 02/24/22 Cyanocobalamin (Vitamin B-12) 500 mcg PO DAILY 02/14/22 02/24/22 [Vitamin B-12] Losartan [Cozaar] 100 mg PO DAILY 02/14/22 02/24/22 Previous Rx's Medication Instructions Recorded Acetaminophen-Codeine 300-30mg 1 tab PO Q6H PRN 3 Days #12 tablet 01/07/24 [Tylenol w/codeine #3] Cephalexin [Keflex] 500 mg PO Q6HR 7 Days #28 cap 01/07/24 Naproxen Sodium 550 mg PO BID PRN #30 tablet 01/07/24 Allergies Allergy/AdvReac Type Severity Reaction Status Date / Time morphine AdvReac Severe Nausea & Verified 11/09/22 14:01 Vomiting Review of Systems ROS Statement: Those systems with pertinent positive or pertinent negative responses have been documented in the HPI. ROS Other: All systems not noted in ROS Statement are negative. Past Medical History Past Medical History: Hyperlipidemia, Hypertension, Liver Disease, Osteoarthritis (OA) Additional Past Medical History / Comment(s): hx. 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 Absent: respiratory distress, wheezes, rales, rhonchi, stridor Cardiovascular Exam: Present: regular rate, normal rhythm, normal heart sounds. Absent: systolic murmur, diastolic murmur, rubs, gallop, clicks Extremities exam: Present: other (Right subungual hematoma with mild depression of the thumbnail and a 1 cm laceration adjacent to the nail with minor active bleeding) Neurological exam: Present: alert, oriented X3, CN II-XII intact Psychiatric exam: Present: normal affect, normal mood Course Vital Signs 01/07/24 01/07/24 11:15 12:59 Temperature 98 F 98.1 F Pulse Rate 72 75 Respiratory 16 16 Rate Blood Pressure 162/77 151/89 O2 Sat by Pulse 97 98 Oximetry Procedures - Laceration Laceration #1 Consent Obtained: verbal consent Indication: laceration Site: hand Size (cm): 1 Description: linear Depth: simple, single layer Anesthetic Used: lidocaine 1% Anesthesia Technique: local infiltration Amount (mls): 2 Pre-repair: wound explored, irrigated extensively Type of Sutures: nylon Size of Sutures: 5-0 Number of Sutures: 1 Technique: simple, interrupted - Nerve Block Consent Obtained: verbal consent Local Anesthetic Used: Lidocaine 1% Amount of anesthesia used: 2 Side: right Nerve Blocks: digital Procedure Successful: Yes - Orthopedic Splinting/Casting Injury #1 Side: right Upper Extremity Injury Location: finger Upper Extremity Immobilizer: finger (other) Medical Decision Making - Medical Decision Making This is a 73-year-old male who presents to the emergency department for a right thumb injury. Was pt. sent in by a medical professional or institution? @ -No Did you speak to anyone other than the patient for history? @ -No Did you review nursing and triage notes? @ -Yes, and I agree, it is accurate with regards to the patient's symptoms. Were old charts reviewed? @ -No Differential Diagnosis? @ -Differential Musculoskeletal: Muscular strain, contusion, ligament sprain, fracture, arthritis, septic arthritis, bursitis, cellulitis, muscle spasm, nerve compression, DVT, arterial occlusion, herpes zoster, electrolyte abnormality, tumor.... This is not meant to be in all inclusive list EKG interpreted by me (3pts min.)? @ -Not obtained X-rays interpreted by me (1pt min.)? @ -X-ray of the right thumb obtained. My interpretation identifies a distal phalanx fracture. CT interpreted by me (1pt min.)? @ -Not obtained U/S interpreted by me (1pt. min.)? @ -Not obtained What testing was considered but not performed? (CT, X-rays, U/S, labs)? Why? @ -None What meds were considered but not given? Why? @ -None Did you discuss the management of the patient with other professionals? @ -No Did you reconcile home meds? @ -No Was smoking cessation discussed for >3mins.? @ -No Was critical care preformed (if so, how long)? @ -No Were there social determinants of health that impacted care today? How? (Homelessness, low income, unemployed, alcoholism, drug addiction, transportation, low edu. Level, literacy, decrease access to med. care, nursing home, rehab)? @ -No Was there de-escalation of care discussed even if they declined? (Discuss DNR or withdrawal of care, Hospice)? @ -No What co-morbidities impacted this encounter? (DM, HTN, Smoking, COPD, CAD, Cancer, CVA, Hep., AIDS, mental health diagnosis, sleep apnea, morbid obesity)? @ -Osteoarthritis Was patient admitted / discharged? @ -Discharged. X-ray of the right thumb demonstrates a transversely oriented fracture at the base of the distal phalanx. He had a small laceration adjacent to the thumbnail and the thumbnail was mildly depressed and mobile. Tetanus vaccine was updated. The laceration was repaired with a suture and the thumbnail was tacked down with 2 sutures for stability. The needle going throu gh the nail also helped to drain the subungual hematoma present. Given the fracture with associated laceration, he was given a prescription for Keflex for infectious prophylaxis as well as naproxen and Tylenol #3's for symptomatic management. Finger splint was applied and he is advised to follow-up with orthopedics. Undiagnosed new problem with uncertain prognosis? @ -None Drug Therapy requiring intensive monitoring for toxicity (Heparin, Nitro, Insulin, Cardizem)? @ -None Were any procedures done? @ -Laceration repair with sutures, finger splint, digital block Diagnosis/symptom? @ -Right thumb fracture, subungual hematoma, laceration Acute, or Chronic, or Acute on Chronic? @ -Acute Uncomplicated (without systemic symptoms) or Complicated (systemic symptoms)? @ -Uncomplicated Side effects of treatment? @ -None Exacerbation, Progression, or Severe Exacerbation] @ -Not applicable Poses a threat to life or bodily function? @ -This will limit his use of the right thumb for the meantime. Return precautions reviewed in depth, the patient is instructed to return to the emergency department with any new, worsening, or concerning symptoms. Patient verbalized understanding. This case was discussed in detail with the attending ED physician, Dr. Martinez. Presentation, findings, and treatment plan discussed in detail as well. - Radiology Data Radiology results: report reviewed, image reviewed Disposition Clinical Impression: Subungual hematoma, Fracture of thumb, right open, Laceration Disposition: HOME SELF-CARE Instructions (If sedation given, give patient instructions): Care For Your Stitches (ED), Thumb Fracture (ED) Additional Instructions: Return to the emergency department with any new, worsening, or concerning symptoms. Take the antibiotic as prescribed for 7 days. Take the naproxen with Tylenol as needed for pain relief. Take the Tylenol with codeine sparingly when your pain is the most severe. Contact orthopedics as listed below for a follow- up appointment. Prescriptions: Cephalexin [Keflex] 500 mg PO Q6HR 7 Days #28 cap Naproxen Sodium 550 mg PO BID PRN #30 tablet PRN Reason: Pain Acetaminophen-Codeine 300-30mg [Tylenol w/codeine #3] 1 tab PO Q6H PRN 3 Days #12 tablet PRN Reason: Pain Is patient prescribed a controlled substance at d/c from ED?: Yes When asked, does pt state using other controlled substances?: No If prescribed controlled substance>3 days was MAPS reviewed?: Prescribed <3 Days Referrals: Catalino Smith DO [Primary Care Provider] - 1-2 days Yulissa Villa DO [Doctor of Osteopathic Medicine] - 1-2 days Time of Disposition: 12:33
[2024-01-07] MEDS: DIPH,PERTUS(ACELL)TETVAC-LF 0.5 ML VIAL IM ONE (11:49)
[2024-01-07] MEDS: LIDOCAINE 1% INJ 10MG/ML (20 ML MDV) SQ ONE (11:49)
--- NOTE | 2024-01-07 11:54 | XR ---
EXAMINATION TYPE: XR finger RT DATE OF EXAM: 01/07/2024 CLINICAL HISTORY: pain TECHNIQUE: 3 views of the right first digit are submitted. COMPARISON: None FINDINGS: Transversely oriented fracture at the base of the right fifth distal phalanx. Displacement at 1 mm. No additional fractures seen within the [id number]. Joint spaces are well-preserved. Cor relate for soft tissue injury. IMPRESSION: Fracture as above
[2024-01-07 13:01] VITALS: BP 151/89; PULSE 75; TEMP 98.1
== END 2024-01-07 13:13 | disposition home or self-care (01) ==
LOC: EC 11:10
DX: S62.521B Displaced fracture of distal phalanx of right thumb, initial encounter for open fracture (principal); Z87.891 Personal history of nicotine dependence; Z88.5 Allergy status to narcotic agent; Z23 Encounter for immunization; W23.1XXA Caught, crushed, jammed, or pinched between stationary objects, initial encounter
CPT/HCPCS: 99283; 12001; 90471; 73140; 90715; J2001

== ENCOUNTER → 2024-03-31 | Outpatient (CLI) | payer MEDICARE, OTHER ==
[2024-03-31 18:33] LABS: Basophils # (A) 0.09 X 10*3/uL (0.00-0.10); Basophils % (A) 1.2 %; Eosinophils % (A) 6.4 %; HCT 41.6 % (39.6-50.0); HGB 14.7 g/dL (13.0-17.0); Lymphocytes # (A) 1.91 X 10*3/uL (0.90-5.00); Lymphocytes % (A) 24.6 %; MCH 31.6 pg (27.0-32.0); MCHC 35.3 g/dL (32.0-37.0); MCV 89.5 FL (80.0-97.0); Mean Platelet Volume 10.3 FL (9.5-12.2); Monocytes # (A) 0.61 X 10*3/uL (0.20-1.00); Monocytes % (A) 7.9 %; NRBC Per 100 WBC 0 X 10*3/uL (0.00-0.01); Neutrophils # (A) 4.62 X 10*3/uL (1.80-7.70); Neutrophils % (A) 59.4 %; Platelet Count 326 X 10*3/uL (140-440); RBC 4.65 X 10*6/uL (4.40-5.60); RDW 13.3 % (11.5-14.5); WBC 7.77 X 10*3/uL (4.50-10.00)
[2024-03-31 19:14] LABS: ALT 96 U/L (10-49); AST 70 U/L (14-35); Albumin 4.3 g/dL (3.8-4.9); Albumin/Globulin Ratio 1.87 Ratio (1.60-3.17); Alkaline Phosphatase 94 U/L (41-126); BUN/Creat Ratio 16.89 Ratio (12.00-20.00); Blood Urea Nitrogen 15.2 mg/dL (9.0-27.0); Calcium 9.5 mg/dL (8.7-10.3); Carbon Dioxide 25.5 mmol/L (21.6-31.8); Chloride 100 mmol/L (96-109); Globulin 2.3 g/dL (1.6-3.3); Glucose 177 mg/dL (70-110); Potassium 3.4 mmol/L (3.5-5.5); Sodium 138 mmol/L (135-145); Total Bilirubin 0.6 mg/dL (0.3-1.2); Total Protein 6.6 g/dL (6.2-8.2)
== END | disposition home or self-care (01) ==
LOC: LABWHC1 12:44
PROVIDERS: ATTEND Internal Medicine Gastroenterology
DX: K75.81 Nonalcoholic steatohepatitis (NASH) (principal)
CPT/HCPCS: 36415; 80053; 85025

== ENCOUNTER → 2024-09-26 | Outpatient (CLI) | payer MEDICARE, OTHER ==
[2024-09-26 15:10] LABS: Basophils % (A) 1.5 %; Eosinophils # (A) 0.28 X 10*3/uL (0.04-0.35); Eosinophils % (A) 4.1 %; HCT 40.5 % (39.6-50.0); HGB 14.6 g/dL (13.0-17.0); Lymphocytes # (A) 1.95 X 10*3/uL (0.90-5.00); Lymphocytes % (A) 28.6 %; MCH 31.7 pg (27.0-32.0); MCV 87.9 FL (80.0-97.0); Mean Platelet Volume 10.6 FL (9.5-12.2); Monocytes # (A) 0.74 X 10*3/uL (0.20-1.00); Monocytes % (A) 10.9 %; NRBC Per 100 WBC 0 X 10*3/uL (0.00-0.01); Neutrophils # (A) 3.72 X 10*3/uL (1.80-7.70); Neutrophils % (A) 54.5 %; Platelet Count 299 X 10*3/uL (140-440); RBC 4.61 X 10*6/uL (4.40-5.60); RDW 13.4 % (11.5-14.5); WBC 6.82 X 10*3/uL (4.50-10.00)
[2024-09-26 15:26] LABS: ALT 136 U/L (10-49); AST 107 U/L (14-35); Albumin 4.3 g/dL (3.8-4.9); Albumin/Globulin Ratio 1.87 Ratio (1.60-3.17); Alkaline Phosphatase 81 U/L (41-126); BUN/Creat Ratio 17.44 Ratio (12.00-20.00); Blood Urea Nitrogen 15.7 mg/dL (9.0-27.0); Calcium 9.6 mg/dL (8.7-10.3); Carbon Dioxide 25.9 mmol/L (21.6-31.8); Chloride 98 mmol/L (96-109); Globulin 2.3 g/dL (1.6-3.3); Glucose 117 mg/dL (70-110); Potassium 3.4 mmol/L (3.5-5.5); Sodium 139 mmol/L (135-145); Total Bilirubin 0.8 mg/dL (0.3-1.2); Total Protein 6.6 g/dL (6.2-8.2)
== END | disposition home or self-care (01) ==
LOC: LABWHC1 09:59
PROVIDERS: ATTEND Internal Medicine Gastroenterology
DX: K75.81 Nonalcoholic steatohepatitis (NASH) (principal)
CPT/HCPCS: 36415; 80053; 85025

== ENCOUNTER → 2024-10-11 | Outpatient (CLI) | payer MEDICARE, OTHER ==
--- NOTE | 2024-10-12 08:54 | MR ---
EXAMINATION TYPE: MR knee LT wo con DATE OF EXAM: 10/11/2024 7:49 PM COMPARISON: Knee 04/15/2012, 10/04/2024. CLINICAL INDICATION: Male, 74 years old with history of M25.562 LEFT KNEE PAIN; PHH, Left knee pain a nd clicks x2 months, Hx of Lt knee scope 20+ yrs ago TECHNIQUE: Multi planar, multi sequence imaging was performed of the knee including: Triplane proton density fat-saturated images and T1-weighted imaging. No Gadolinium was given. IV Contrast: mL (none if empty) FINDINGS: Medial meniscus: Posterior horn free edge tear with displacement of the fragment into the joint s eries 501 image 25. Medial femorotibial cartilage: Intact Medial collateral ligament: Intact Lateral meniscus: Intrasubstance tear of the body. No displaced tear Lateral femorotibial cartilage: Grade-II chondromalacia. Lateral collateral ligament complex: Intact Patellofemoral alignment: Normal Patellofemoral cartilage: Grade-II chondromalacia. Extensor mechanism: Intact. Joint/bursal fluid: None. Muscles/tendons: The patellar tendon, quadriceps tendon, IT band, pes anserinus tendons, semimembrano jermain tendon, popliteus tendon, and biceps femoris tendon are all within normal limits. Bone marrow: Normal. Anterior cruciate ligament: Intact. Posterior cruciate ligament: Intact. Soft tissues: Ganglion cyst posterior to the knee as well as a small Rodriguez's cyst present. IMPRESSION: 1. Posterior horn medial meniscal tear with fragment positioned between the femoral condyle and tibi al plateau likely resulting in clicking symptoms per patient. 2. The ACL and PCL and lateral meniscus are intact. 3. Mild to moderate osteoporosis changes of the knee. Mild synovial thickening correlate for synovit is. 10/12/2024 8:42 AM,10/11/2024 7:49 PM,[facility],MR knee LT wo con,[id number] [facility], , 10/12/2024 8:52 AM
== END | disposition home or self-care (01) ==
LOC: RADMRIMAIN 18:59
PROVIDERS: ATTEND Orthopaedic Surgery
DX: M23.222 Derangement of posterior horn of medial meniscus due to old tear or injury, left knee (principal); M81.0 Age-related osteoporosis without current pathological fracture

== ENCOUNTER 2024-11-10 11:31 | Day surgery (SDC) | payer MEDICARE, OTHER ==
--- NOTE | 2024-11-09 21:58 | HP ---
HISTORY AND PHYSICAL DATE OF SURGERY: 11/10/2024. HISTORY OF PRESENT ILLNESS: Josh Jackson is a 74-year-old gentleman seen with progressive left knee pain. We discussed options regarding treatment. He elected to proceed with left knee arthroscopy. Consent was obtained. Medical clearance was provided by Dr. Catalino Smith. PAST MEDICAL HISTORY: Hypertension. PAST SURGICAL HISTORY: Ankle surgery, knee arthroscopy, nasal surgery. DAILY MEDICATIONS: 1. Aspirin. 2. Aleve. 3. Amlodipine. 4. Zetia. ALLERGIES: Morphine. SOCIAL HISTORY: Denies tobacco use. PHYSICAL EVALUATION OF THE LEFT KNEE: Range of motion is -2/3 to 120 degrees. Mild effusion. Tenderness along the medial joint line with a positive medial Neeta's. Ligaments stable. Hip rotation is without pain. Distal neurovascular exam is intact. IMAGING STUDIES: Radiographs of the left knee revealed mild to moderate osteoarthritic changes. MRI of the left knee revealed medial meniscal tear, and Rodriguez's cyst. IMPRESSION: 1. Internal derangement of left knee with medial meniscal tear. 2. Hypertension. PLAN: Left knee arthroscopy with partial medial meniscectomy and debridement. MMODL / IJN: [id number] /
[~2024-11-10 11:31] MED LIST changes: -ALPRAZolam 0.25 MG TAB PO PRN; +HYDROmorphone 0.5 MG/0.5 ML SYRINGE IVP PRN
[2024-11-10] MEDS: IV FLUID CONTINUATION 1,000 ML IV ONE (11:53)
[2024-11-10] MEDS: LACTATED RINGERS 1,000 ML IV SCH (12:26)
[2024-11-10] MEDS: DEXAMETHASONE SOD PHOSPHATE 4 MG/ML 1 ML VIAL IV ONE (12:26)
[2024-11-10] MEDS: ONDANSETRON 4 MG/2 ML VIAL IVP ONE (12:26)
[2024-11-10] MEDS ORDERED: PROPOFOL 10 MG/ML 20 ML VIAL IV ONE (13:19)
[2024-11-10] MEDS: ceFAZolin 2 GM in DEXTROSE 5% IN WATER 50 ML IVPB PRN (13:19)
[2024-11-10] MEDS ORDERED: fentaNYL (PF) 50 MCG/ML 2 ML AMP ONE (13:19)
[2024-11-10] MEDS ORDERED: MIDAZOLAM 2 MG/2 ML VIAL ONE (13:19)
[2024-11-10] MEDS ORDERED: KETOROLAC 15 MG/ML 1 ML VIAL ONE (13:19)
[2024-11-10] MEDS: BUPIVACAINE (PF) 0.25% 30 ML VIAL INTRAARTIC ONE ×2 (13:37→13:57)
--- NOTE | 2024-11-10 14:12 | P.OP ---
Date of Procedure: 11/10/24 Preoperative Diagnosis: Internal derangement left knee Postoperative Diagnosis: 1. Tear medial and lateral meniscus left knee 2. Grade IV chondromalacia femoral sulcus left knee 3. Reactive synovitis medial, lateral and suprapatellar compartments left knee 4. Grade II/III chondromalacia medial femoral condyle left knee Procedure(s) Performed: 1. Arthroscopic partial medial and lateral meniscectomy left knee 2. Arthroscopic microfracture femoral sulcus left knee 3. Arthroscopic partial synovectomy medial, lateral and suprapatellar compartments left knee 4. Arthroscopic chondroplasty femoral sulcus left knee 5. Arthroscopic chondroplasty medial femoral condyle left knee Anesthesia: FRANKA, local Surgeon: Nahid Sims Estimated Blood Loss (ml): 5 Pathology: none sent Condition: stable Disposition: PACU Indications for Procedure: 74-year-old gentleman seen with progressive left knee pain. After having treatment options discussed, he elected to proceed with arthroscopy. Operative Findings: See description of procedure Description of Procedure: Patient was taken to the operative suite. Patient underwent a general anesthetic by the department of anesthesia. Patient was given preoperative antibiotics. The left lower extremity was placed in a well-padded arthroscopic leg olson. The left leg was prepped and draped in the normal sterile orthopedic fashion. A lateral parapatellar and suprapatellar incision was made. Trochars were inserted. Arthroscopy was initiated. Suprapatellar pouch revealed diffuse thick reactive synovitis. The patellofemoral joint appeared to articulate congruently. There was grade III/IV chondromalacia of the femoral sulcus with osteochondral flap tears present. The scope was guided into the medial gutter. No loose bodies or plica were identified. The scope was then guided into the medial compartment. A medial parapatellar incision was made. Trocar inserted followed by probe. There was a complex tear involving the posterior and mid body areas of the medial meniscus. There were grade II/III chondromalacia changes medial femoral condyle with some osteochondral flap tears. There was thick reactive synovitis anteriorly. I performed a partial medial meniscectomy getting down to stable meniscal tissue. I performed a chondroplasty of the medial femoral condyle getting down to stable osteochondral tissue. I performed a partial synovectomy decompressing the reactive synovitis anteriorly. The residual meniscus was probed and was found to be stable. The residual osteochondral surface was stable. There was good decompression of the synovitis. Scope and probe were then guided into the intercondylar notch. Cruciates were identified, probed and found to be stable. The scope and probe were then guided into lateral compartment. There was a radial tear mid body lateral meniscus. There were grade I chondromalacia changes lateral compartment without tears. There was thick reactive synovitis along the anterior aspect lateral compartment. I performed a partial lateral meniscectomy getting down to stable meniscal tissue. I performed a partial synovectomy decompressing the reactive synovitis. The residual meniscus was probed and was found to be stable. There was good decompression of the synovitis. The scope was in guided back into the suprapatellar compartment. I introduced a motorized shaver into the suprapatellar compartment. I debrided some piecemeal mac fragments of meniscus I encountered. I performed a chondroplasty to the femoral sulcus getting down to stable osteochondral tissue. I performed a partial synovectomy decompressing the reactive synovitis. I did note an area of exposed bone/grade IV chondromalacia involving the central aspect of the femoral sulcus measuring just about a centimeter. I introduced a microfracture awl and I performed a microfracture to that area penetrating the bone with resultant bleeding at the microfracture site. We had good decompression of the synovitis. I took 1 more look around the entire knee, no residual debris. I instruments were now removed from the joint. The joint was infiltrated with .25% Marcaine. Steri-Strips were applied to the portal sites. Sterile dressings were applied. The patient was placed into a ELIZA hose. No tourniquet was utilized. The patient was awakened, transferred to a bed and taken to recovery stable satisfactory condition.
[2024-11-10 14:23] VITALS: TEMP 96.9
[2024-11-10 15:20] VITALS: BP 139/81; PULSE 74; RESP 14
== END 2024-11-10 15:37 | disposition home or self-care (01) ==
LOC: OR 11:31
PROVIDERS: ATTEND Orthopaedic Surgery
DX: S83.242A Other tear of medial meniscus, current injury, left knee, initial encounter (principal); S83.282A Other tear of lateral meniscus, current injury, left knee, initial encounter; M94.262 Chondromalacia, left knee; M65.89 Other synovitis and tenosynovitis, multiple sites; I10 Essential (primary) hypertension; Z88.5 Allergy status to narcotic agent
CPT/HCPCS: 84132; 29880; 29879; 29876; J2250; J1100; J0690; J2405; J3010; J1885; J2704; J0665

== ENCOUNTER 2024-11-20 22:47 | Inpatient (IN) | payer MEDICARE, OTHER ==
--- NOTE | 2024-11-20 23:07 | ED ---
Neuro HPI - General Chief Complaint: Neuro Symptoms/Deficit Stated Complaint: Stroke Time Seen by Provider: 11/20/24 22:58 Source: patient Mode of arrival: ambulatory Limitations: no limitations - History of Present Illness Is the patient presenting with stroke symptoms?: Yes Last Known Well Date: 11/20/24 Last Known Well Time: 16:00 -: hour(s) Initial Comments: This patient is a 74-year-old man presenting with complaints that he thinks he is having a stroke. The patient states he had gone to take a nap at 4 PM, and then he was awakened this evening by feeling like he was dizzy. He tried to get up to use the bathroom and found that he was constantly wanting to fall towards his left side. Patient also noted that he is having some numbness along the left side of his face. The patient states that when the symptoms did not resolve he came here to have evaluation. Location: left face, dysarthria History of same: No Place: home Severity: moderate Quality: numb Improves With: none Worsens With: none Context: sudden onset Treatments Prior to Arrival: none - Related Data Home Medications: Home Medications Medication Instructions Recorded Confirmed Multivitamin [Men's Multi-Vitamin] 1 tab PO DAILY 07/08/17 11/21/24 Aspirin [Adult Low Dose Aspirin EC] 81 mg PO DAILY 02/14/22 11/21/24 Cyanocobalamin (Vitamin B-12) 1,000 mcg PO DAILY 02/14/22 11/21/24 [Vitamin B-12] Ezetimibe [Zetia] 10 mg PO DAILY 11/07/24 11/21/24 Citalopram Hydrobromide [CeleXA] 10 mg PO DAILY 11/21/24 11/21/24 amLODIPine [Norvasc] 10 mg PO DAILY 11/21/24 11/21/24 Previous Rx's Medication Instructions Recorded HYDROcodone/APAP 5-325MG [[place] 1 tab PO Q6HR PRN #12 tab 11/10/24 5-325] Clopidogrel [Plavix] 75 mg PO DAILY #30 tablet 11/23/24 Allergies/Adverse Reactions: Allergies Allergy/AdvReac Type Severity Reaction Status Date / Time morphine AdvReac Severe Nausea & Verified 11/21/24 08:07 Vomiting Review of Systems ROS Statement: Those systems with pertinent positive or pertinent negative responses have been documented in the HPI. ROS Other: All systems not noted in ROS Statement are negative. Constitutional: Denies: fever, chills, weakness Eyes: Denies: vision change ENT: Denies: hearing loss Respiratory: Denies: cough, dyspnea Cardiovascular: Denies: chest pain, palpitations, orthopnea, edema, syncope Gastrointestinal: Denies: abdominal pain, nausea, vomiting, diarrhea Genitourinary: Denies: dysuria, hematuria Musculoskeletal: Denies: back pain Skin: Denies: rash Neurological: Reports: numbness, abnormal gait, vertigo. Denies: headache, weakness Hematological/Lymphatic: Denies: easy bleeding General Exam Limitations: no limitations General appearance: alert, in no apparent distress Head exam: Present: atraumatic, normocephalic Eye exam: Present: normal appearance. Absent: scleral icterus, conjunctival injection ENT exam: Present: normal oropharynx Neck exam: Present: normal inspection, full ROM. Absent: meningismus Respiratory exam: Present: normal lung sounds bilaterally. Absent: respiratory distress, wheezes, rales, rhonchi, stridor, accessory muscle use Cardiovascular Exam: Present: regular rate, normal rhythm, normal heart sounds. Absent: systolic murmur, diastolic murmur, rubs, gallop GI/Abdominal exam: Present: soft. Absent: distended, tenderness, guarding, rebound, rigid, mass Extremities exam: Present: normal inspection, normal capillary refill. Absent: pedal edema, calf tenderness Back exam: Present: normal inspection. Absent: CVA tenderness (R), CVA tenderness (L) Neurological exam: Present: alert, oriented X3. Absent: motor sensory deficit Skin exam: Present: warm, dry, intact, normal color. Absent: rash Stroke MDM - Lab Data Result diagrams: 11/21/24 10:18 11/22/24 05:51 Lab Results 11/20/24 11/20/24 11/20/24 Range/Units 23:01 23:01 23:01 WBC 10.47 H (4.50-10.00) 10*3/uL RBC 4.77 (4.40-5.60) 10*6/uL Hgb 15.5 (13.0-17.0) g/dL Hct 41.6 (39.6-50.0) % MCV 87.2 (80.0-97.0) fL MCH 32.5 H (27.0-32.0) pg MCHC 37.3 H (32.0-37.0) g/dL Plt Count 322 (140-440) 10*3/uL MPV 9.9 (9.5-12.2) fL Immature Gran % (Auto) 0.7 % Neutrophils % 74.7 % Lymphocytes % 16.6 % Monocytes % 6.5 % Eosinophils % 0.5 % Basophils % 1.0 % Immature Gran # 0.07 H (0.00-0.04) 10*3/uL Neutrophils # 7.83 H (1.80-7.70) 10*3/uL Lymphocytes # 1.74 (0.90-5.00) 10*3/uL Monocytes # 0.68 (0.20-1.00) 10*3/uL Eosinophils # 0.05 (0.04-0.35) 10*3/uL Basophils # 0.10 (0.00-0.10) 10*3/uL PT 10.4 (10.0-12.5) sec INR 0.9 (<1.2) APTT 18.8 L (22.0-30.0) sec Sodium 135 L (137-145) mmol/L Potassium 2.9 L (3.5-5.1) mmol/L Chloride 94 L (98-107) mmol/L Carbon Dioxide 26 (22-30) mmol/L Anion Gap 15 mmol/L BUN 17 (9-20) mg/dL Creatinine 0.91 (0.66-1.25) mg/dL Est GFR (CKD-EPI)AfAm >90 (>60 ml/min/1.73 sqM) Est GFR (CKD-EPI)NonAf 83 (>60 ml/min/1.73 sqM) Glucose 144 H (74-99) mg/dL Calcium 10.1 (8.4-10.2) mg/dL Total Bilirubin 0.7 (0.2-1.3) mg/dL AST 125 H (17-59) U/L ALT 129 H (4-49) U/L Alkaline Phosphatase 104 (38-126) U/L Creatine Kinase 56 (55-170) U/L Troponin I (0.000-0.034) ng/mL Total Protein 7.4 (6.3-8.2) g/dL Albumin 4.6 (3.5-5.0) g/dL Serum Alcohol <10 mg/dL 11/20/24 Range/Units 23:01 WBC (4.50-10.00) 10*3/uL RBC (4.40-5.60) 10*6/uL Hgb (13.0-17.0) g/dL Hct (39.6-50.0) % MCV (80.0-97.0) fL MCH (27.0-32.0) pg MCHC (32.0-37.0) g/dL Plt Count (140-440) 10*3/uL MPV (9.5-12.2) fL Immature Gran % (Auto) % Neutrophils % % Lymphocytes % % Monocytes % % Eosinophils % % Basophils % % Immature Gran # (0.00-0.04) 10*3/uL Neutrophils # (1.80-7.70) 10*3/uL Lymphocytes # (0.90-5.00) 10*3/uL Monocytes # (0.20-1.00) 10*3/uL Eosinophils # (0.04-0.35) 10*3/uL Basophils # (0.00-0.10) 10*3/uL PT (10.0-12.5) sec INR (<1.2) APTT (22.0-30.0) sec Sodium (137-145) mmol/L Potassium (3.5-5.1) mmol/L Chloride (98-107) mmol/L Carbon Dioxide (22-30) mmol/L Anion Gap mmol/L BUN (9-20) mg/dL Creatinine (0.66-1.25) mg/dL Est GFR (CKD-EPI)AfAm (>60 ml/min/1.73 sqM) Est GFR (CKD-EPI)NonAf (>60 ml/min/1.73 sqM) Glucose (74-99) mg/dL Calcium (8.4-10.2) mg/dL Total Bilirubin (0.2-1.3) mg/dL AST (17-59) U/L ALT (4-49) U/L Alkaline Phosphatase (38-126) U/L Creatine Kinase (55-170) U/L Troponin I <0.012 (0.000-0.034) ng/mL Total Protein (6.3-8.2) g/dL Albumin (3.5-5.0) g/dL Serum Alcohol mg/dL - NIH Stroke Scale 1a. Level of Consciousness: (0) alert 1b. LOC Questions: (0) answers correctly 1c. LOC Commands: (0) performs tasks correctly 2. Best Gaze: (0) normal 3. Visual: (0) no visual loss 4. Facial Palsy: (0) normal symmetrical movement 5a. Motor Arm Left: (0) no drift 5b. Motor Arm Right: (0) no drift 6a. Motor Leg Left: (0) no drift 6b. Motor Leg Right: (0) no drift 7. Limb Ataxia: (0) absent 8. Sensory: (1) mild/moderate sensory loss 9. Best Language: (0) no aphasia 10. Dysarthria: (1) mild/moderate dysarthria 11. Extinction/Inattention: (0) no abnormality - Medical Decision Making Case discussed with the stroke team shortly after arrival. Patient sent for imaging and then results discussed again with Dr. Kimbrough. The patient to have medical management. Patient admitted with neurology consultation The patient had chest x-ray that I interpreted as negative for acute infiltrate, pneumothorax, congestive heart failure The patient had CT scan of the brain that I interpreted as negative for acute intracranial hemorrhage, negative for mass effect or midline shift. CT angiography interpreted by radiology Was pt. sent in by a medical professional or institution (, PA, QUALITY COMPLIANCE MANAGER, urgent care, hospital, or skilled nursing...) When possible be specific @ -[No] Did you speak to anyone other than the patient for history (EMS, parent, family, police, friend...)? What history was obtained from this source @ -[No] Did you review nursing and triage notes (agree or disagree)? Why? @ -[I reviewed and agree with nursing and triage notes] Were old charts reviewed (outside hosp., previous admission, EMS record, old EKG, old radiological studies, urgent care reports/EKG's, skilled nursing records)? Report findings @ -[No old charts were reviewed] Differential Diagnosis (chest pain, altered mental status, abdominal pain women, abdominal pain men, vaginal bleeding, weakness, fever, dyspnea, syncope, headache, dizziness, GI bleed, back pain, seizure, CVA, palpatations, mental health, musculoskeletal)? @ -[Differential CVA Ischemic stroke, hemorrhagic stroke, brain tumor, atypical migraine, Wernicke's encephalopathy, seizure, multiple sclerosis, meningitis, encephalitis, hypoglycemia, Guillain-John, electrolytes disturbance, myasthenia gravis.... This is not meant to be an all-inclusive list EKG interpreted by me (3pts min.). @ -[I interpreted as above] X-rays interpreted by me (1pt min.). @ -[I interpreted as above CT interpreted by me (1pt min.). @ -[I interpreted as above U/S interpreted by me (1pt. min.). @ -[None done] What testing was considered but not performed or refused? (CT, X-rays, U/S, labs)? Why? @ -[None] What meds were considered but not given or refused? Why? @ -[None] Did you discuss the management of the patient with other professionals (professionals i.e. , PA, QUALITY COMPLIANCE MANAGER, lab, RT, psych nurse, pediatric social worker, testing projects administrator, teacher, interface control officer, foster care case manager)? Give summary @ -[Case discussed with the interventional stroke team and then also with the admitting physician and treatment recommendations incorporated Was smoking cessation discussed for >3mins.? @ -[No] Was critical care preformed (if so, how long)? @ -[Yes, 35 minutes Were there social determinants of health that impacted care today? How? (Homelessness, low income, unemployed, alcoholism, drug addiction, perez sportation, low edu. Level, literacy, decrease access to med. care, longterm, rehab)? @ -[No] Was there de-escalation of care discussed even if they declined (Discuss DNR or withdrawal of care, Hospice)? DNR status @ -[No] What co-morbidities impacted this encounter? (DM, HTN, Smoking, COPD, CAD, Canc er, CVA, ARF, Chemo, Hep., AIDS, mental health diagnosis, sleep apnea, morbid obesity)? @ -[None] Was patient admitted / discharged? Hospital course, mention meds given and route, prescriptions, significant lab abnormalities, going to OR and other pertinent info. @ -[Patient is a 74-year-old man presenting with problems with balance starting acutely tonight. The patient worked up as code TNKase. Case discussed twice with the stroke interventional list and their treatment recommendations are followed. The patient will be admitted to have further neurology evaluation and treatment. Undiagnosed new problem with uncertain prognosis? @ -[No] Drug Therapy requiring intensive monitoring for toxicity (Heparin, Nitro, Insulin, Cardizem)? @ -[No] Were any procedures done? @ -[No] Diagnosis/symptom? @ -[Acute ischemic stroke, left vertebral artery Acute, or Chronic, or Acute on Chronic? @ -[Acute Uncomplicated (without systemic symptoms) or Complicated (systemic symptoms)? @ -[Uncomplicated Side effects of treatment? @ -[No] Exacerbation, Progression, or Severe Exacerbation? @ -[No] Poses a threat to life or bodily function? How? (Chest pain, [place], [place], pneumonia, PE, COPD, DKA, ARF, appy, cholecystitis, CVA, Diverticulitis, Homicidal, Suicidal, threat to staff... and all critical care pts) @ -[No] All treatments are based on ideal body weight as in ED triage - EKG Data -: EKG Interpreted by Me EKG shows normal: sinus rhythm, axis (Normal), intervals (Normal), QRS complexes (Normal) Rate: normal (Rate 71 bpm) Interpretation: LVH Past Medical History Past Medical History: Cancer, Hearing Disorder / Deafness, Hyperlipidemia, Hypertension, Liver Disease, Osteoarthritis (OA) Additional Past Medical History / Comment(s): hx. kidney stones, elevated liver enzymes, bladder ca, wears hearing aids. History of Any Multi-Drug Resistant Organisms: None Reported Past Surgical History: Bladder Surgery, Cholecystectomy, Hernia Repair, Joint Replacement, Orthopedic Surgery Additional Past Surgical History / Comment(s): right 4th & 5th fingers amputated, ORIF left ankle, arthroscopy both knees, sinus surg, right hip replac ement, liver biopsy, bladder ca removed, trigger finger surg Past Anesthesia/Blood Transfusion Reactions: No Reported Reaction Past Psychological History: Depression Smoking Status: Former smoker Past Alcohol Use History: None Reported Past Drug Use History: None Reported - Past Family History Sister(s) Family Medical History: Cancer Additional Family Medical History / Comment(s): bile duct Course Vital Signs 11/20/24 11/21/24 11/21/24 22:48 00:00 01:00 Temperature 97.9 F Pulse Rate 71 69 68 Pulse Rate [ Left Supine] Respiratory 18 12 12 Rate Blood Pressure 180/80 150/70 146/68 Blood Pressure [Left Arm Supine] O2 Sat by Pulse 98 96 96 Oximetry 11/21/24 11/21/24 11/21/24 06:00 06:30 08:26 Temperature 98.0 F Pulse Rate 75 64 75 Pulse Rate [ Left Supine] Respiratory 15 14 20 Rate Blood Pressure 196/87 132/72 149/79 Blood Pressure [Left Arm Supine] O2 Sat by Pulse 96 99 Oximetry 11/21/24 11/21/24 11/21/24 09:07 11:51 14:05 Temperature Pulse Rate 75 71 77 Pulse Rate [ Left Supine] Respiratory 20 20 20 Rate Blood Pressure 147/80 148/88 142/73 Blood Pressure [Left Arm Supine] O2 Sat by Pulse 98 99 Oximetry 11/21/24 11/21/24 16:00 16:54 Temperature 98.0 F 98.3 F Pulse Rate 75 Pulse Rate [ 75 Left Supine] Respiratory 16 20 Rate Blood Pressure 120/64 Blood Pressure 129/73 [Left Arm Supine] O2 Sat by Pulse 97 96 Oximetry Disposition Clinical Impression: CVA (cerebral vascular accident) Disposition: [facility]MITTED [facility] TO [facility] Condition: Stable Is patient prescribed a controlled substance at d/c from ED?: No
[2024-11-20 23:32] LABS: Eosinophils # (A) 0.05 10*3/uL (0.04-0.35); Eosinophils % (A) 0.5 %; HCT 41.6 % (39.6-50.0); HGB 15.5 g/dL (13.0-17.0); Lymphocytes # (A) 1.74 10*3/uL (0.90-5.00); Lymphocytes % (A) 16.6 %; MCH 32.5 pg (27.0-32.0); MCHC 37.3 g/dL (32.0-37.0); MCV 87.2 fL (80.0-97.0); Mean Platelet Volume 9.9 fL (9.5-12.2); Monocytes # (A) 0.68 10*3/uL (0.20-1.00); Monocytes % (A) 6.5 %; Neutrophils # (A) 7.83 10*3/uL (1.80-7.70); Neutrophils % (A) 74.7 %; Platelet Count 322 10*3/uL (140-440); RBC 4.77 10*6/uL (4.40-5.60); WBC 10.47 10*3/uL (4.50-10.00)
--- NOTE | 2024-11-20 23:35 | CT ---
EXAM: CT Head Without Intravenous Contrast CLINICAL HISTORY: ITS.REASON CT Reason: Neuro deficit, acute, stroke suspected TECHNIQUE: Axial computed tomography images of the head/brain without intravenous contrast. CTDI is 48.8 mGy and DLP is 1188 mGy-cm. This CT exam was performed using one or more of the following dose reduction techniques: automated exposure control, adjustment of the mA and/or kV according to patient size, and/or use of iterative reconstruction technique. COMPARISON: No previous studies. FINDINGS: Brain: Physiologic calcifications noted within the basal ganglia. Age- related atrophy and small vessel disease of aging. No hemorrhage. No abnormal extra-axial collection is noted. Midline shift: Midline anatomy is unremarkable. Ventricles: Unremarkable. No ventriculomegaly. Bones/joints: Calvarium is unremarkable. No acute fracture. Soft tissues: Unremarkable. Vasculature: Atherosclerotic disease. Sinuses: Postsurgical changes the maxillary sinuses. 2.5 cm polyp versus mucous retention cyst left maxillary sinus. Mastoid air cells: Mastoid air cells are well pneumatized. IMPRESSION: 1. Age-related changes and small vessel disease of aging. 2. No acute intracranial pathology. 3. If there is concern for etiology such as early acute lacunar infarcts, MRI imaging of the brain with diffusion-weighted sequences should be performed. <MYCVCSECTION> Communications: 11/20/24 23:49 Call From Hospital Regarding Above results, called Dr. Doan on 11/20 23:49 (-04:00)
[2024-11-20 23:44] LABS: ALT 129 U/L (4-49); AST 125 U/L (17-59); African American GFR (CKD) >90 (>60 ml/min/1.73 sqM); Albumin 4.6 g/dL (3.5-5.0); Alcohol <10 mg/dL; Alkaline Phosphatase 104 U/L (38-126); Anion Gap 15 mmol/L; Blood Urea Nitrogen 17 mg/dL (9-20); Calcium 10.1 mg/dL (8.4-10.2); Carbon Dioxide 26 mmol/L (22-30); Chloride 94 mmol/L (98-107); Creatine Kinase 56 U/L (55-170); Glucose 144 mg/dL (74-99); Non-African American GFR(CKD) 83 (>60 ml/min/1.73 sqM); Potassium 2.9 mmol/L (3.5-5.1); Sodium 135 mmol/L (137-145); Total Bilirubin 0.7 mg/dL (0.2-1.3); Total Protein 7.4 g/dL (6.3-8.2)
--- NOTE | 2024-11-20 23:44 | CT ---
EXAM: CT Angiography Head With Intravenous Contrast CLINICAL HISTORY: ITS.REASON CT Reason: Neuro deficit, acute, stroke suspected TECHNIQUE: Axial computed tomographic angiography images of the head with intravenous contrast. CTDI is 17.6 mGy and DLP is 699.1 mGy-cm. This CT exam was performed using one or more of the following dose reduction techniques: automated exposure control, adjustment of the mA and/or kV according to patient size, and/or use of iterative reconstruction technique. MIP reconstructed images were created and reviewed. COMPARISON: CT imaging of the head of 11/20/2024. FINDINGS: Right internal carotid artery: Atherosclerotic disease of the intracranial segments of the internal carotid arteries is noted. Intracranial segment is patent with no significant stenosis. No aneurysm. Right anterior cerebral artery: Unremarkable. No occlusion or significant stenosis. No aneurysm. Right middle cerebral artery: Good flow within the middle cerebral arteries. No aneurysm. Right posterior cerebral artery: The anterior and posterior cerebral arteries are unremarkable. No occlusion or significant stenosis. No aneurysm. Right vertebral artery: Good flow within the distal right vertebral artery. Left internal carotid artery: See above. Left anterior cerebral artery: Unremarkable. No occlusion or significant stenosis. No aneurysm. Left middle cerebral artery: See above. Left posterior cerebral artery: See above. Left vertebral artery: No flow within the distal left vertebral artery. Basilar artery: Good flow within the basilar artery. No aneurysm. Other findings: Region of the [place] is unremarkable. IMPRESSION: No flow within the distal left vertebral artery. Occlusion of the distal left vertebral artery should be considered. Clinical correlation is advised. Consideration should be given the catheter angiography for further assessment as deemed clinically necessary. EXAM: CT Angiography Neck With Intravenous Contrast CLINICAL HISTORY: ITS.REASON CT Reason: Neuro deficit, acute, stroke suspected TECHNIQUE: Routine carotid CT angiography protocol was performed with intravenous contrast. NASCET criteria using the distal ICAs for comparison were used for evaluation of stenoses. CTDI is 17.6 mGy and DLP is 699.1 mGy-cm. This CT exam was performed using one or more of the following dose reduction techniques: automated exposure control, adjustment of the mA and/or kV according to patient size, and/or use of iterative reconstruction technique. MIP reconstructed images were created and reviewed. COMPARISON: CT imaging of the head of 11/20/2024. FINDINGS: VASCULATURE: Right common carotid artery: Good flow within the common carotid arteries. Right internal carotid artery: Extensive atherosclerotic disease of the carotid bifurcation extending the proximal internal carotid arteries. Good flow within the internal carotid arteries. Right external carotid artery: Unremarkable. No occlusion. Right vertebral artery: Atherosclerotic disease of the origin of the vertebral arteries. Dominant right vertebral artery is noted. Good flow within the right vertebral artery extending to the basilar artery. Left common carotid artery: See above. Left internal carotid artery: See above. Left external carotid artery: Unremarkable. No occlusion. Left vertebral artery: No flow within the distal left vertebral artery is noted. Clinical correlation is advised. Aorta: Atherosclerotic disease of the thoracic aorta is noted. NECK: Bones/joints: Unremarkable. No acute fracture. Soft tissues: Unremarkable. Lung apices: COPD. CAROTID STENOSIS REFERENCE USING NASCET CRITERIA: % ICA stenosis = (1 - narrowest ICA diameter/diameter of distal cervical ICA) x 100. Mild - <50% stenosis. Moderate - 50-69% stenosis. Severe - 70-94% stenosis. Near occlusion - 95-99% stenosis. Occluded - 100% stenosis. IMPRESSION: 1. No flow within the distal left vertebral artery. 2. Dominant right vertebral artery is noted. Occlusion of the distal left vertebral artery should be considered. Clinical correlation is highly advised. Consideration should be given the further assessment with catheter angiography. Neurosurgical consultation is advised. 3. Extensive atherosclerotic disease of the carotid bifurcations extending the proximal internal carotid arteries. 4. Duplex Doppler interrogation of the great vessels the neck is advised to assess for peak systolic velocities. <MYCVCSECTION> Communications: 11/20/24 23:50 Call Doctor Regarding Above results, called Dr. Doan on 11/20 23:49 (-04:00)
--- NOTE | 2024-11-20 23:47 | XR ---
EXAM: XR Chest, 2 Views CLINICAL HISTORY: ITS.REASON XR Reason: altered mental status TECHNIQUE: Frontal and lateral views of the chest. COMPARISON: 11/09/2022. FINDINGS: Lungs: Unremarkable. No consolidative changes or pleural effusions. Pleural space: See above. Heart: Cardiomegaly. Mediastinum: Unremarkable. Normal mediastinal contour. Bones/joints: Osseous structures and soft tissues are unremarkable. No acute fracture. Other findings: Hypoaeration. IMPRESSION: 1. Hypoaeration. 2. Cardiomegaly. 3. No consolidative changes or pleural effusions.
[2024-11-20 23:50] LABS: INR 0.9 (<1.2); Prothrombin Time 10.4 sec (10.0-12.5)
[2024-11-20 23:56] LABS: Partial Thromboplastin Time 18.8 sec (22.0-30.0)
[2024-11-21] MEDS ORDERED: ACETAMINOPHEN TAB 325 MG TAB PO PRN (00:07)
[2024-11-21] MEDS: ASPIRIN 325 MG TAB PO STA (00:19)
[2024-11-21] MEDS: SODIUM CHLORIDE 0.9% 1,000 ML IV SCH (00:27)
[2024-11-21] MEDS: LABETALOL 5 MG/ML VIAL MDV IVP PRN (06:16)
[2024-11-21] MEDS: DOCUSATE 100 MG CAP PO SCH (09:00)
[2024-11-21] MEDS: FAMOTIDINE 20 MG/2 ML VIAL IV SCH (09:00)
[2024-11-21 10:41] LABS: HCT 38.7 % (39.6-50.0); HGB 14.2 g/dL (13.0-17.0); MCH 32.5 pg (27.0-32.0); MCHC 36.7 g/dL (32.0-37.0); MCV 88.6 fL (80.0-97.0); Mean Platelet Volume 9.7 fL (9.5-12.2); Platelet Count 297 10*3/uL (140-440); RBC 4.37 10*6/uL (4.40-5.60); RDW 13.2 % (11.5-14.5); WBC 9.61 10*3/uL (4.50-10.00)
[2024-11-21 10:54] LABS: African American GFR (CKD) >90 (>60 ml/min/1.73 sqM); Anion Gap 11 mmol/L; Blood Urea Nitrogen 13 mg/dL (9-20); Calcium 9.5 mg/dL (8.4-10.2); Carbon Dioxide 26 mmol/L (22-30); Chloride 98 mmol/L (98-107); Glucose 130 mg/dL (74-99); Magnesium 1.6 mg/dL (1.6-2.3); Non-African American GFR(CKD) >90 (>60 ml/min/1.73 sqM); Potassium 2.9 mmol/L (3.5-5.1); Sodium 135 mmol/L (137-145)
[2024-11-21] MEDS ORDERED: Magnesium Replacement Protocol 1 EACH MISC MISCELLANE PRN (16:39)
[2024-11-21] MEDS ORDERED: Potassium Replacement Protocol 1 EACH MISC MISCELLANE PRN (16:40)
--- NOTE | 2024-11-21 17:07 | P.HPIM ---
History of Present Illness H&P Date: 11/21/24 Chief Complaint: Slurred speech, left-sided weakness This is a 74-year-old male with past medical history significant for recent knee arthroscopy, hypertension, hyperlipidemia, prior nicotine dependence, kidney stones, depression, osteoarthritis ,obesity and multiple other medical issues presented to the ER with complaints of left-sided weakness, slurred speech. Patient reports while he was at home around 4 PM in the garage," felt funny-lightheaded", proceeded inside, sat down. while sitting, developed profuse sweating, continued feeling lightheaded with mild confusion. Attempted to get up and ambulate ,-appeared to be leaning to the left, grabbing onto furniture to steady his walking accompanied by slurred speech. After a few hours symptoms persisted and patient proceeded to the ER after 9pm. On arrival majority of symptoms had resolved with mild dysarthria present. NIV score 2, patient did not receive thrombolytics. On admission patient was hypertensive with blood pressure 180/80. Denied chest pain, palpitations or shortness of breath. Sodium 135, potassium 2.9, renal function stable, glucose 144, AST 125, ALT 129, troponin Negative x 1, serum alcohol less than 10, brain CT reported no acute intracranial pathology, CTA reported no flow within the distal left vertebral artery, dominant right vertebral artery noted, occlusion of the distal left vertebral artery should be considered, extensive arteriosclerotic disease of the carotid bifurcations extending to the proximal internal carotid arteries. Chest x-ray reported unremarkable ,hypoaeration, cardiomegaly, no consolidative changes or pleural effusion. Currently patient is asymptomatic. Review of Systems ROS Statement: Those systems with pertinent positive or pertinent negative responses have been documented in the HPI. ROS Other: All systems not noted in ROS Statement are negative. Past Medical History Past Medical History: Cancer, Hearing Disorder / Deafness, Hyperlipidemia, Hypertension, Liver Disease, Osteoarthritis (OA) Additional Past Medical History / Comment(s): hx. kidney stones, elevated liver enzymes, bladder ca, wears hearing aids. History of Any Multi-Drug Resistant Organisms: None Reported Past Surgical History: Bladder Surgery, Cholecystectomy, Hernia Repair, Joint Replacement, Orthopedic Surgery Additional Past Surgical History / Comment(s): right 4th & 5th fingers amputated, ORIF left ankle, arthroscopy both knees, sinus surg, right hip replacement, liver biopsy, bladder ca removed, trigger finger surg Past Anesthesia/Blood Transfusion Reactions: No Reported Reaction Past Psychological History: Depression Smoking Status: Former smoker Past Alcohol Use History: None Reported Past Drug Use History: None Reported - Past Family History Sister(s) Family Medical History: Cancer Additional Family Medical History / Comment(s): bile duct Medications and Allergies Home Medications Medication Instructions Recorded Confirmed Type Multivitamin [Men's Multi-Vitamin] 1 tab PO DAILY 07/08/17 11/21/24 History Aspirin [Adult Low Dose Aspirin EC] 81 mg PO DAILY 02/14/22 11/21/24 History Cyanocobalamin (Vitamin B-12) 1,000 mcg PO DAILY 02/14/22 11/21/24 History [Vitamin B-12] Ezetimibe [Zetia] 10 mg PO DAILY 11/07/24 11/21/24 History HYDROcodone/APAP 5-325MG [[place] 1 tab PO Q6HR PRN #12 tab 11/10/24 11/21/24 Rx 5-325] Citalopram Hydrobromide [CeleXA] 10 mg PO DAILY 11/21/24 11/21/24 History amLODIPine [Norvasc] 10 mg PO DAILY 11/21/24 11/21/24 History Allergies Allergy/AdvReac Type Severity Reaction Status Date / Time morphine AdvReac Severe Nausea & Verified 11/21/24 08:07 Vomiting Physical Exam Vitals: Vital Signs Temp Pulse Resp BP Pulse Ox 11/21/24 09:07 75 20 147/80 98 11/21/24 08:26 98.0 F 75 20 149/79 11/21/24 06:30 64 14 132/72 99 11/21/24 06:00 75 15 196/87 96 11/21/24 01:00 68 12 146/68 96 11/21/24 00:00 69 12 150/70 96 11/20/24 22:48 97.9 F 71 18 180/80 98 Intake and Output 11/20/24 11/21/24 11/21/24 22:59 06:59 14:59 Output Total 1285 Balance -1285 Output: Urine 650 Straight 650 Post Void Residual 635 Other: Weight 94.347 kg GENERAL: This is a pleasant 74-year-old male, no acute distress. Hard of hearing, wears hearing aids. HEENT: Head is atraumatic, normocephalic. Pupils are equal, round, and reactive to light. Sclerae anicteric. Conjunctivae are clear. Mucus membranes of the mouth are moist. Neck is supple. RESPIRATORY: Clear to ausculation. No wheezes, rales, or rhonchi. No use of accessory muscles. Patient maintaining oxygen saturation greater than 92% on room air. No chest wall tenderness is noted on palpation or with deep breathing. CARDIOVASCULAR: Regular rate and rhythm. S1 and S2 noted. No systolic or diastolic murmur auscultated. No JVD noted. No S3 or S4 noted. GASTROINTESTINAL: No distention noted. Abdomen soft and round. Normal active bowel sounds auscultated X 4 quadrants. No pain or tenderness noted upon palpation. INTEGUMENTARY: No cyanosis. No jaundice. No rashes noted. No cellulitis noted. EXTREMITIES: 2+ peripheral pulses. No evidence of peripheral edema. No calf tenderness noted. NEUROLOGIC: Cranial nerves II-XII intact. No left-sided weakness currently present, speech is fluent, clear, appropriate. PSYCHIATRIC: Awake, alert, and oriented X 3. Appropriate affect. Intact judgement and insight. Results CBC & Chem 7: 11/21/24 10:18 11/22/24 05:51 Labs: Abnormal Lab Results - Last 24 Hours (Table) 11/20/24 11/20/24 11/20/24 Range/Units 23:01 23:01 23:01 WBC 10.47 H (4.50-10.00) 10*3/uL MCH 32.5 H (27.0-32.0) pg MCHC 37.3 H (32.0-37.0) g/dL Immature Gran # 0.07 H (0.00-0.04) 10*3/uL Neutrophils # 7.83 H (1.80-7.70) 10*3/uL APTT 18.8 L (22.0-30.0) sec Sodium 135 L (137-145) mmol/L Potassium 2.9 L (3.5-5.1) mmol/L Chloride 94 L (98-107) mmol/L Glucose 144 H (74-99) mg/dL AST 125 H (17-59) U/L ALT 129 H (4-49) U/L Assessment and Plan Assessment: Slurred speech with left-sided weakness, resolved. Possible CVA or TIA. CTA reports poss.occlusion of distal left vertebral artery. Recent left knee arthroscopy, Hypertension Hyperlipidemia Obesity, BMI 31 Prior nicotine dependence Depression Hypokalemia Plan: Continue on current medication resume ,monitoring and symptomatic treatment. Aspirin. Elevated ALT, AST, statin on hold. neurology consult in place, recommendations pending. Repeat labs/lytes ordered. Electrolyte replacement protocols ordered. PT/OT/ST. The impression and plan of care has been dictated as directed. : I performed a history and examination of this patient, discussed the same with the dictator. I agree with the dictator's note ,documented as a scribe. Any additional findings or plans will be noted.
--- NOTE | 2024-11-21 18:00 | P.CNNES ---
History of Present Illness Consult date: 11/21/24 Requesting physician: Yamil Doan Reason for Consult: Acute ischemic stroke, left vertebral circulation History of Present Illness: Patient is a 74-year-old right-handed male with history of hypertension, ex tobacco use, came to the hospital yesterday at 10:47 PM for strokelike symptoms. Patient's was also present by the bedside, and they provided with a history. Patient was out in the garage at around 4 PM, just done with spray painting, working on the engine, when he felt lightheaded, dizzy. His neck was also feeling sore. He sat in the couch, and had some snacks. At that time he started sweating profusely. He took a nap. At 5:45 PM, he got up and went to the dinner. After dinner, he could not get up from the table without tipping over. His checked his blood pressure was 178/80. He could hardly stand, felt will fall over. He again started sweating and then started feeling chills. His words became slurred at around 6 PM. There was no facial droop. His left eye felt "funny" like "swollen". At 10 PM, he was watching TV program, wanted to go to the bathroom and was very wobbly. He managed to get into the car, and then his brought him to the hospital. He denies any focal numbness or tingling, focal weakness, double vision. Vital signs on arrival blood pressure 180/80, which came down to 150/70, pulse rate 71 temperature 97.9. Blood test shows WBC 10.7 normal hemoglobin and platelets. Sodium 135 potassium 2.9, normal renal functions. AST is 125, ALT 129. Troponin negative. CK normal. Blood alcohol level negative. CT head showed age-related changes and small vessel disease of aging. No acute intracranial pathology. If there is concern for etiology, such as early acute lacunar infarcts, MRI imaging of the brain with diffusion weighted sequences should be performed. I reviewed CT head, and there is 1 suspicious hypodensity in the lower yanely which could be artifactual versus subacute. Chest x-ray showed hypoinflation, cardiomegaly. EKG showed sinus rhythm. Patient was not a candidate for TNK, as his symptoms have been present for > 4.5 hours. Home medications include aspirin 81 mg, Zetia 10 mg, [place], amlodipine, Celexa B12 and multivitamin. Patient has history of smoking for 20 years, quit at the age 38 (1987). No alcohol use. Patient has stage II liver disease. He does not drink a lot. Patient has hypertension but no diabetes. Patient's father of a stroke at age 69 but he was alcoholic. Patient had undergone left meniscus surgery on 11/10/2024. He had stopped aspirin for 7 days prior to surgery, but resumed his aspirin 81 mg from 11/11/2024. At present, patient states that he feels a lot better. He is able to get up and walk and does not feel will tip over. His voice is better. His voice is cleared up. Does not feel like will fall over. He feels "close to being normal". He does have a mild headache at this time. No dizziness. Review of Systems All pertinent positive and negative review of systems mentioned HPI, otherwise unremarkable. Past Medical History Past Medical History: Cancer, Hearing Disorder / Deafness, Hyperlipidemia, Hypertension, Liver Disease, Osteoarthritis (OA) Additional Past Medical History / Comment(s): hx. kidney stones, elevated liver enzymes, bladder ca, wears hearing aids. History of Any Multi-Drug Resistant Organisms: None Reported Past Surgical History: Bladder Surgery, Cholecystectomy, Hernia Repair, Joint Replacement, Orthopedic Surgery Additional Past Surgical History / Comment(s): right 4th & 5th fingers amputated, ORIF left ankle, arthroscopy both knees, sinus surg, right hip replacement, liver biopsy, bladder ca removed, trigger finger surg Past Anesthesia/Blood Transfusion Reactions: No Reported Reaction Past Psychological History: Depression Smoking Status: Former smoker Past Alcohol Use History: None Reported Past Drug Use History: None Reported - Past Family History Sister(s) Family Medical History: Cancer Additional Family Medical History / Comment(s): bile duct Medications and Allergies Home Medications Medication Instructions Recorded Confirmed Type Multivitamin [Men's Multi-Vitamin] 1 tab PO DAILY 07/08/17 11/21/24 History Aspirin [Adult Low Dose Aspirin EC] 81 mg PO DAILY 02/14/22 11/21/24 History Cyanocobalamin (Vitamin B-12) 1,000 mcg PO DAILY 02/14/22 11/21/24 History [Vitamin B-12] Ezetimibe [Zetia] 10 mg PO DAILY 11/07/24 11/21/24 History HYDROcodone/APAP 5-325MG [[place] 1 tab PO Q6HR PRN #12 tab 11/10/24 11/21/24 Rx 5-325] Citalopram Hydrobromide [CeleXA] 10 mg PO DAILY 11/21/24 11/21/24 History amLODIPine [Norvasc] 10 mg PO DAILY 11/21/24 11/21/24 History Allergies Allergy/AdvReac Type Severity Reaction Status Date / Time morphine AdvReac Severe Nausea & Verified 11/21/24 08:07 Vomiting Physical Examination - Vital Signs Vital Signs: Vital Signs Temp Pulse Resp BP Pulse Ox 11/21/24 16:54 98.3 F 75 20 120/64 96 11/21/24 14:05 77 20 142/73 11/21/24 11:51 71 20 148/88 99 11/21/24 09:07 75 20 147/80 98 11/21/24 08:26 98.0 F 75 20 149/79 11/21/24 06:30 64 14 132/72 99 11/21/24 06:00 75 15 196/87 96 11/21/24 01:00 68 12 146/68 96 11/21/24 00:00 69 12 150/70 96 11/20/24 22:48 97.9 F 71 18 180/80 98 Intake and Output 11/21/24 11/21/24 11/21/24 06:59 14:59 22:59 Output Total 1285 Balance -1285 Output: Urine 650 Straight 650 Post Void Residual 635 Patient is an elderly male, very pleasant, in no acute distress. Patient is alert awake oriented to time place and person. Speech and language functions are normal. Patient can name and repeat very well. No aphasia or dysarthria. Attention, concentration and fund of knowledge is adequate. On cranial nerve examination, pupils are equal, round and reacting to light, visual melvin are full on confrontation, with no neglect on double simultaneous stimulation. Extraocular muscles are intact with no nystagmus. Face is symmetric, tongue protrudes to the midline. Palatal elevation and sensation normal, hearing and shoulder shrug normal, facial sensation normal. On muscle strength testing, there is no pronator drift and the strength is normal in arms and legs distally and proximally. Deep tendon reflexes are symmetric 1+ to 2+ and plantars downgoing. Left knee not checked because of recent surgery. Sensory to touch is equal with no neglect on double simultaneous stimulation. Cerebellar function showed no ataxia for [id number] testing. No dysdiadochokinesia. No ataxia for [id number] testing on either side. Tone and bulk of muscles normal. Gait deferred.. On general examination, there is no carotid bruit or murmur, S1-S2 audible. Chest is clear on consultation. Abdomen is soft nontender. No organomegaly, bowel sounds present. Peripheral pulses are present. No peripheral edema. Results - Laboratory Findings CBC and BMP: 11/21/24 10:18 11/21/24 10:18 Abnormal Lab Findings: Abnormal Labs 11/20/24 11/20/24 11/20/24 23:01 23:01 23:01 WBC 10.47 H RBC Hct MCH 32.5 H MCHC 37.3 H Immature Gran # 0.07 H Neutrophils # 7.83 H APTT 18.8 L Sodium 135 L Potassium 2.9 L Chloride 94 L Glucose 144 H AST 125 H ALT 129 H 11/21/24 11/21/24 10:18 10:18 WBC RBC 4.37 L Hct 38.7 L MCH 32.5 H MCHC Immature Gran # Neutrophils # APTT Sodium 135 L Potassium 2.9 L Chloride Glucose 130 H AST ALT Assessment and Plan Assessment: * Possible TIA versus CVA manifesting with dizziness, lightheadedness imbalance, slurred speech. Symptoms have mostly resolved. * Distal left vertebral artery occlusion, per CTA, rule out vertebral artery dissection. * Hypertension * Ex tobacco use * Chronic, stage II liver disease * Borderline A1c 6.3 Plan: MRI of the brain without contrast, evaluate for acute CVA MRA brain evaluate for vertebral artery dissection versus occlusion. 2-D echo with bubble study to rule out PFO CTA head neck showed: No flow within the distal left vertebral artery. Dominant right vertebral artery. Occlusion of the distal left vertebral artery should be considered. Extensive atherosclerotic disease of the carotid bifurcations extending to the proximal ICA. CTA of the neck showed no flow within the distal left vertebral artery. Occlusion of the distal left vertebral artery should be considered. Fasting a.m. lipid panel Hemoglobin A1c Optimize control of blood pressure. Patient was taking aspirin 81 mg daily. We will add Plavix 75 mg daily for now, pending above workup. Neuro checks as per protocol. Telemetry monitoring rule out any arrhythmia PT, OT, speech therapy DVT prophylaxis: Heparin 5000 units subcu every 8 hours Neurology will continue to follow. Thank you for the consult. Time with Patient: Greater than 30
[2024-11-21] MEDS: MAGNESIUM SULFATE-D5W PMX 1 GM in DEXTROSE/WATER 1 100ML.BAG IVPB SCH (18:01)
[2024-11-21] MEDS: POTASSIUM CHLORIDE ER 20 MEQ TAB.ER PO SCH (18:01)
[2024-11-21] MEDS: PANTOPRAZOLE 40 MG/10 ML VIAL IVP SCH (18:05)
[2024-11-21] MEDS: CLOPIDOGREL 75 MG TAB PO SCH (18:05)
[2024-11-21] MEDS: ATORVASTATIN 40 MG TAB PO SCH (18:37)
[2024-11-21 21:18] VITALS: RESP 16
[2024-11-21] MEDS: 0.9% NACL WITH KCL 20 MEQ/L 1,000 ML IV SCH (22:44)
[2024-11-22 06:57] LABS: African American GFR (CKD) >90 (>60 ml/min/1.73 sqM); Anion Gap 7 mmol/L; Blood Urea Nitrogen 11 mg/dL (9-20); Calcium 9.1 mg/dL (8.4-10.2); Carbon Dioxide 26 mmol/L (22-30); Chloride 106 mmol/L (98-107); Glucose 96 mg/dL (74-99); Magnesium 1.8 mg/dL (1.6-2.3); Non-African American GFR(CKD) 87 (>60 ml/min/1.73 sqM); Potassium 3.5 mmol/L (3.5-5.1); Sodium 139 mmol/L (137-145)
[2024-11-22] MEDS: ASPIRIN 325 MG TAB PO SCH (09:36)
--- NOTE | 2024-11-22 10:31 | CA ---
Transthoracic Echo Report Name: Josh Jackson Age: 74 Gender: M : 1950 Exam Date: 11/22/2024 07:26 Exam Location: [facility] Ht (in): 69 Wt (lb): 208 Ordering Physician: Too Rocha MD Attending/Referring Phys: [employer] Neha Rodrigues RDCS Procedure CPT: Indications: stroke/tia Cardiac Hx: HTN, Cancer Technical Quality: Contrast 1: Total Dose (mL): Contrast 2: Total Dose (mL): MEASUREMENTS (Male / Female) Normal Values 2D ECHO RV Internal Dim ED PLAX 3.6 cm LVOT Diameter 1.9 cm LV Diastolic Volume MOD 4C 147.7 cm??? LV Systolic Volume MOD 4C 59.2 cm??? LV Ejection Fraction MOD 4C 59.9 % LV Cardiac Index MOD 4C 2855.9 cm???/min???m??? LV Diastolic Length 4C 8.6 cm LV Systolic Length 4C 7.5 cm LA Volume 48.5 cm??? 18 - 58 / 22 - 52 cm??? LA Volume Index 22.3 cm???/m??? 16 - 28 cm???/m??? M-MODE LV Diastolic Diameter MM 7.4 cm 4.2 - 5.9 / 3.9 - 5.3 cm LV Systolic Diameter MM 5.0 cm LV Cardiac Index MM Teich 5348.9 cm???/min???m??? IVS Diastolic Thickness MM 1.0 cm 0.6 - 1.0 / 0.6 - 0.9 cm LVPW Diastolic Thickness MM 1.0 cm 0.6 - 1.0 / 0.6 - 0.9 cm LV Relative Wall Thickness MM 0.3 0.24 - 0.42 / 0.22 - 0.42 LV Mass Index MM 169.2 g/m??? 49 - 115 / 43 - 95 g/m??? DOPPLER AV Peak Velocity 222.4 cm/s AV Peak Gradient 19.8 mmHg AV Mean Velocity 162.2 cm/s AV Mean Gradient 11.5 mmHg AV Velocity Time Integral 48.1 cm MV Area PHT 3.2 cm??? Mitral E Point Velocity 71.1 cm/s Mitral A Point Velocity 87.2 cm/s Mitral E to A Ratio 0.8 MV Deceleration Time 237.9 ms TR Peak Velocity 173.2 cm/s TR Peak Gradient 12.0 mmHg FINDINGS Left Ventricle Left ventricular ejection fraction is estimated at 60 %. Severely increased left ventricular mass. Severely increased left ventricular diastolic diameter. No obvious regional wall motion abnormalities. Right Ventricle Normal right ventricular size and function. Right ventricular systolic pressure within normal limits. Right Atrium Normal right atrial size. Negative agitated saline bubble study for right to left shunt. Left Atrium Normal left atrial size. Mitral Valve Mitral valve thickened. No mitral stenosis. Trace mitral regurgitation. Aortic Valve Trileaflet aortic valve. Diffuse thickening (sclerosis) of the aortic valve cusps without reduced excursion. Tricuspid Valve Structurally normal tricuspid valve. No tricuspid stenosis. Trace tricuspid regurgitation. Pulmonic Valve Pulmonic valve not well visualized. No pulmonic stenosis. Trace pulmonic regurgitation. Pericardium No pericardial effusion. Aorta Normal size aortic root and proximal ascending aorta. CONCLUSIONS Normal LV size with mild to moderate concentric LVH preserved contractility. Minimal mitral and tricuspid regurgitation. No pulmonary hypertension. No pericardial effusion. Bubble study is negative for [id number] shunt Previewed by: Dr. Darren Lord MD (Electronically Signed) Final Date: 22 Nov 2024 10:30
[2024-11-22 10:38] LABS: LDL Cholesterol,Calculated 101.1 mg/dL (0.0-131.0)
--- NOTE | 2024-11-22 12:36 | P.PN ---
Subjective Progress Note Date: 11/22/24 H&P Date: 11/21/24 Chief Complaint: Slurred speech, left-sided weakness This is a 74-year-old male with past medical history significant for recent knee arthroscopy, hypertension, hyperlipidemia, prior nicotine dependence, kidney stones, depression, osteoarthritis ,obesity and multiple other medical issues presented to the ER with complaints of left-sided weakness, slurred speech. Patient reports while he was at home around 4 PM in the garage ," felt funny-lightheaded", proceeded inside, sat down. while sitting, developed profuse sweating, continued feeling lightheaded with mild confusion. Attempted to get up and ambulate ,-appeared to be leaning to the left, grabbing onto furniture to steady his walking accompanied by slurred speech. After a few hours symptoms persisted and patient proceeded to the ER after 9pm. On arrival majority of symptoms had resolved with mild dysarthria present. NIV score 2, patient did not receive thrombolytics. On admission patient was hypertensive with blood pressure 180/80. Denied chest pain, palpitations or shortness of breath. Sodium 135, potassium 2.9, renal function stable, glucose 144, AST 125, ALT 129, troponin Negative x 1, serum alcohol less than 10, brain CT reported no acute intracranial pathology, CTA reported no flow within the distal left vertebral artery, dominant right vertebral artery noted, occlusion of the distal left vertebral artery should be considered, extensive arteriosclerotic disease of the carotid bifurcations extending to the proximal internal carotid arteries. Chest x-ray reported unremarkable ,hypoaeration, cardiomegaly, no consolidative changes or pleural effusion. Currently patient is asymptomatic. 11/22/2024 no new neuro complaints. Reports he is back to baseline. Denies lightheadedness, dizziness or focal deficits. Evaluated by neurology with recommendations noted-MRIs ordered. Received multiple potassium and magnesium supplements yesterday, potassium currently 3.5, magnesium 1.8. Denies chest pain, palpitations or shortness of breath. Objective - Vital Signs Vital signs: Vital Signs Temp 98.2 F 11/22/24 09:15 Pulse 76 11/22/24 11:45 Resp 16 11/22/24 11:45 BP 127/67 11/22/24 11:45 Pulse Ox 97 11/22/24 11:45 FiO2 Intake & Output 11/21/24 11/22/24 11/22/24 18:59 06:59 18:59 Intake Total 180 1340 540 Balance 180 1340 540 Weight 94.347 kg 92 kg Intake: Intake, IV Titration 1100 Amount 0.9% NaCl with KCl 20 Meq 900 /l 1,000 ml @ 100 mls/hr IV .Q10H JEREMIAH Rx#: [id number] Magnesium Sulfate-D5w Pmx 200 1 gm In Dextrose/Water 1 100ml.bag @ 100 mls/hr IVPB Q1H JEREMIAH Rx#: [id number] Oral 180 240 540 Other: # Voids 1 - Exam GENERAL: Alert and oriented x 3, sitting up in bed, no acute distress. [place], hearing aids being charged. HEENT: Head is atraumatic, normocephalic. Pupils are equal, round, and reactive to light. Sclerae anicteric. Conjunctivae clear, MMM. Neck is supple, no JVD. RESPIRATORY: Clear to ausculation. No wheezes, rales, or rhonchi. No use of accessory muscles. CARDIOVASCULAR: Regular rate and rhythm. S1 and S2 noted. No systolic or diastolic murmur auscultated. No S3 or S4 noted. GASTROINTESTINAL: No distention noted. Abdomen soft and round. Normal active bowel sounds. No pain or tenderness noted upon palpation. INTEGUMENTARY: Warm and dry, no rashes noted. EXTREMITIES: 2+ peripheral pulses. No peripheral edema. No calf tenderness. NEUROLOGIC: Cranial nerves II-XII intact. No focal deficits. Strength and sensation grossly intact. - Labs CBC & Chem 7: 11/21/24 10:18 11/22/24 05:51 Labs: Abnormal Lab Results - Last 24 Hours (Table) 11/21/24 11/22/24 Range/Units 21:15 05:51 Potassium 3.2 L (3.5-5.1) mmol/L Triglycerides 371.00 H (0.00-149.00) mg/dL Cholesterol 205.00 H (0.00-200.00) mg/dL VLDL Cholesterol, Calc 74.20 H (5.00-40.00) mg/dL HDL Cholesterol 29.70 L (40.00-60.00) mg/dL Assessment and Plan Assessment: Slurred speech with left-sided weakness, resolved. Possible CVA or TIA. CTA reports poss.occlusion of distal left vertebral artery. Recent left knee arthroscopy, Hypertension Hyperlipidemia Obesity, BMI 31 Prior nicotine dependence Depression Hypokalemia Hypomagnesemia Plan: Continue on current medication resume ,monitoring and symptomatic treatment. Potassium magnesium supplementation ordered. Neurology workup in progress with MRA head and MR brain ordered. PT/OT/ST. discharge planning in progress pending completion of neurology workup, final DC recommendations and clearance per neurology. The impression and plan of care has been dictated as directed. : I performed a history and examination of this patient, discussed the same with the dictator. I agree with the dictator's note ,documented as a scribe. Any additional findings or plans will be noted.
--- NOTE | 2024-11-22 13:47 | MR ---
EXAMINATION TYPE: MR angio head wo con DATE OF EXAM: 11/22/2024 1:13 PM COMPARISON: CT Angio 11/20/2024.. CLINICAL INDICATION: Male, 74 years old with history of CVA; PHH, CVA TECHNIQUE: 3-D [id number] Axial with MIP reconstruction created on a separate workstation.. IV Contrast: mL (None, if empty) FINDINGS: Vertebral arteries: Right vertebral artery is patent and the left is occluded and not visualized in t he intracranial portion as seen on CTA. Vertebral arteries are: Right dominant. There is occlusion of the distal intracranial portion of the vertebral artery. Basilar artery: The basilar artery is intact. The basilar artery bifurcation is normal. Internal Carotid arteries: The cervical, petrous, cavernous and supraclinoid segments are normal. GINA: Patent with no evidence of aneurysm. ACOM: Present without evidence of aneurysm. MCA: Patent with no evidence of aneurysm. PLEATER HAND: Patent with no evidence of aneurysm. PCOM: Hypoplastic bilaterally. IMPRESSION: 1. 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 2. No evidence of aneurysm or significant stenosis. [facility], , 11/22/2024 1:44 PM
--- NOTE | 2024-11-22 14:02 | MR ---
EXAMINATION TYPE: MR brain wo con DATE OF EXAM: 11/22/2024 1:13 PM COMPARISON: CT. CLINICAL INDICATION: Male, 74 years old with history of CVA; PHH, CVA TECHNIQUE: Multi planar, multi sequence imaging was performed through the brain including: T1, T2, In version recovery, Diffusion weighted imaging, and gradient echo imaging. No gadolinium was given. FINDINGS: Mild cerebral atrophy with proportional dilation of ventricular system. Scattered foci of high T2 s ignal intensity are seen within the periventricular white matter. Midline structures show no abnormal ity. Diffusion-weighted imaging shows no evidence of restricted diffusion. The susceptibility weighte d images do not reveal any evidence for micro-hemorrhage. Loss of normal flow void signal in the left intracranial vertebral artery compatible with known occlusion. The bone marrow signal is within normal limits. Paranasal sinuses and mastoid air cells: Mild scattered paranasal sinus disease. Visualized orbits: Orbital contents are intact. IMPRESSION: 1. No evidence of intracranial mass or acute/subacute infarct. 2. Nonspecific white matter changes, likely secondary to small vessel ischemic disease. 3. Occluded left vertebral artery intracranial portion. [facility], , 11/22/2024 2:00 PM
[2024-11-22] MEDS: POTASSIUM CHLORIDE ER 20 MEQ TAB.ER PO STA (15:36)
[2024-11-22] MEDS: MAGNESIUM SULFATE-D5W PMX 1 GM in DEXTROSE/WATER 1 100ML.BAG IVPB ONE (15:37)
[2024-11-22 16:58] VITALS: BP 150/75; PULSE 84; TEMP 97.9
--- NOTE | 2024-11-22 17:28 | P.PN ---
Subjective Progress Note Date: 11/22/24 Patient was seen for follow-up. All symptoms resolved. Objective - Vital Signs Vital signs: Vital Signs Temp 97.9 F 11/22/24 15:30 Pulse 84 11/22/24 15:30 Resp 16 11/22/24 15:30 BP 150/75 11/22/24 15:30 Pulse Ox 97 11/22/24 15:30 FiO2 Intake & Output 11/21/24 11/22/24 11/22/24 18:59 06:59 18:59 Intake Total 180 1340 540 Output Total 3 Balance 180 1340 537 Weight 94.347 kg 92 kg Intake: Intake, IV Titration 1100 Amount 0.9% NaCl with KCl 20 Meq 900 /l 1,000 ml @ 100 mls/hr IV .Q10H JEREMIAH Rx#: [id number] Magnesium Sulfate-D5w Pmx 200 1 gm In Dextrose/Water 1 100ml.bag @ 100 mls/hr IVPB Q1H JEREMIAH Rx#: [id number] Oral 180 240 540 Output: Urine 3 Other: # Voids 1 1 - Exam Mentation normal, examination nonfocal. - Labs CBC & Chem 7: 11/21/24 10:18 11/22/24 05:51 Labs: Abnormal Lab Results - Last 24 Hours (Table) 11/21/24 11/22/24 Range/Units 21:15 05:51 Potassium 3.2 L (3.5-5.1) mmol/L Triglycerides 371.00 H (0.00-149.00) mg/dL Cholesterol 205.00 H (0.00-200.00) mg/dL VLDL Cholesterol, Calc 74.20 H (5.00-40.00) mg/dL HDL Cholesterol 29.70 L (40.00-60.00) mg/dL Assessment and Plan Assessment: * Probable TIA manifesting with dizziness, lightheadedness imbalance, slurred speech. Symptoms have resolved. * Distal left vertebral artery occlusion, per CTA, no evidence of vertebral art china dissection. * Hypertension * Ex tobacco use * Chronic, stage II liver disease * Borderline A1c 6.3 Plan: Patient's symptoms have resolved. MRI of the brain showed no acute stroke. Patient likely had a TIA. MRI and MRA of the brain without contrast, revealed occlusion of the left vertebral artery intracranial portion. No evidence of aneurysm or significant stenosis. I personally reviewed MRI, agree with the findings. No evidence of acute stroke. 2-D echo revealed normal LV size with moderate concentric LVH. LVEF 60%. Severely increased left ventricular mass. No obvious regional wall motion abnormalities. Normal left atrial size. Negative agitated saline bubble study for [id number] shunt. CTA head and neck showed: No flow within the distal left vertebral artery. Dominant right vertebral artery. Occlusion of the distal left vertebral artery should be considered. Extensive atherosclerotic disease of the carotid bifurcations extending to the proximal ICA. Fasting a.m. lipid panel cholesterol 205, LDL 101, HDL 29, triglycerides 371. Patient is currently on Zetia. Patient cannot be on statins because of elevated liver functions. Consider newer agents like Repatha. Also need to address hypertriglyceridemia. Hemoglobin A1c 6.3 Optimize control of blood pressure. Patient was taking aspirin 81 mg daily. Recommend dual antiplatelet therapy with aspirin 81 mg and Plavix 75 mg for 21 days. Thereafter may stop aspirin and continue Plavix indefinitely. Telemetry monitoring showed no obvious arrhythmia. PT, OT, speech therapyNeurologically clear for discharge.
[2024-11-23] MEDS ORDERED: PANTOPRAZOLE 40 MG TABLET PO SCH (07:30)
[2024-11-23] MEDS ORDERED: ASPIRIN 81 MG PO SCH (09:00)
--- NOTE | 2024-11-24 14:31 | P.DS ---
Providers Date of admission: 11/21/24 00:13 Expected date of discharge: 11/22/24 Attending physician: Catalino Smith Consults: 11/21/24 00:08 Consult Physician Routine Consulting Provider: Genny Martinez Consult Reason/Comments: Acute ischemic stroke, left vertebral circulation Do you want consulting provider notified?: Yes Primary care physician: Catalino Smith [facility] Course: Slurred speech with left-sided weakness, resolved. Suspect TIA, possible CVA. CTA reports poss.occlusion of distal left vertebral artery. Neurology w/u in progress. Continues on Zetia ,no statin secondary to elevated LFTs, in a patient with history of liver disease. Recent left knee arthroscopy, Hypertension Hyperlipidemia Obesity, BMI 31 Prior nicotine dependence Depression Hypokalemia Hypomagnesemia Liver disease. Hospital course:This is a 74-year-old male with past medical history significant for recent knee arthroscopy, hypertension, hyperlipidemia, prior nicotine dependence, kidney stones, depression, osteoarthritis ,obesity and multiple other medical issues presented to the ER with complaints of left-sided weakness, slurred speech. Patient reports while he was at home around 4 PM in the garage," felt funny-lightheaded", proceeded inside, sat down. while sitting, developed profuse sweating, continued feeling lightheaded with mild confusion. Attempted to get up and ambulate ,-appeared to be leaning to the left, grabbing onto furniture to steady his walking accompanied by slurred speech. After a few hours symptoms persisted and patient proceeded to the ER after 9pm. On arrival majority of symptoms had resolved with mild dysarthria present. NIV score 2, patient did not receive thrombolytics. On admission patient was hypertensive with blood pressure 180/80. Denied chest pain, palpitations or shortness of breath. Sodium 135, potassium 2.9, renal function stable, glucose 144, AST 125, ALT 129, troponin Negative x 1, serum alcohol less than 10, brain CT reported no acute intracranial pathology, CTA reported no flow within the distal left vertebral artery, dominant right vertebral artery noted, occlusion of the distal left vertebral artery should be considered, extensive arteriosclerotic disease of the carotid bifurcations extending to the proximal internal carotid arteries. Chest x-ray reported unremarkable ,hypoaeration, cardiomegaly, no consolidative changes or pleural effusion. Currently patient is asymptomatic. 11/22/2024 no new neuro complaints. Reports he is back to baseline. Denies lightheadedness, dizziness or focal deficits. Evaluated by neurology with recommendations noted-MRIs ordered. Received multiple potassium and magnesium supplements yesterday, potassium currently 3.5, magnesium 1.8. Denies chest pain, palpitations or shortness of breath. Continues on current medication resume ,monitoring and symptomatic treatment. Potassium magnesium supplementation ordered. Neurology workup in progress with MRA head and MR brain ordered. PT/OT/ST. discharge planning in progress pending completion of neurology workup, final DC recommendations and clearance per neurology. The impression and plan of care has been dictated as directed. : I performed a history and examination of this patient, discussed the same with the dictator. I agree with the dictator's note ,documented as a scribe. Any additional findings or plans will be noted. Patient Condition at Discharge: Stable Plan - Discharge Summary Discharge Rx Participant: Yes New Discharge Prescriptions: New Clopidogrel [Plavix] 75 mg PO DAILY #30 tablet No Action Multivitamin [Men's Multi-Vitamin] 1 tab PO DAILY Aspirin [Adult Low Dose Aspirin EC] 81 mg PO DAILY Cyanocobalamin (Vitamin B-12) [Vitamin B-12] 1,000 mcg PO DAILY Ezetimibe [Zetia] 10 mg PO DAILY HYDROcodone/APAP 5-325MG [[place] 5-325] 1 tab PO Q6HR PRN #12 tab PRN Reason: Pain amLODIPine [Norvasc] 10 mg PO DAILY Citalopram Hydrobromide [CeleXA] 10 mg PO DAILY Discharge Medication List Multivitamin [Men's Multi-Vitamin] 1 tab PO DAILY 07/08/17 [History] Aspirin [Adult Low Dose Aspirin EC] 81 mg PO DAILY 02/14/22 [History] Cyanocobalamin (Vitamin B-12) [Vitamin B-12] 1,000 mcg PO DAILY 02/14/22 [History] Ezetimibe [Zetia] 10 mg PO DAILY 11/07/24 [History] HYDROcodone/APAP 5-325MG [[place] 5-325] 1 tab PO Q6HR PRN #12 tab 11/10/24 [Rx] Citalopram Hydrobromide [CeleXA] 10 mg PO DAILY 11/21/24 [History] amLODIPine [Norvasc] 10 mg PO DAILY 11/21/24 [History] Clopidogrel [Plavix] 75 mg PO DAILY #30 tablet 11/23/24 [Rx] Follow up Appointment(s)/Referral(s): Catalino Smith DO [Primary Care Provider] - 3 Days (Please call to schedule follow up. ) Patient Instructions/Handouts: Clopidogrel (By mouth), Transient Ischemic Attack (DC) Activity/Diet/Wound Care/Special Instructions: Patient was taking aspirin 81 mg daily. Recommend dual antiplatelet therapy with aspirin 81 mg and Plavix 75 mg for 21 days. Thereafter may stop aspirin and continue Plavix indefinitely. Discharge Disposition: HOME SELF-CARE
== END 2024-11-22 18:47 | disposition home or self-care (01) | DRG 69 ==
LOC: EC 22:47 → 3SCARD 11-21 00:13
PROVIDERS: ADMIT Family Medicine; ATTEND Family Medicine
DX: G45.9 Transient cerebral ischemic attack, unspecified (principal); K76.89 Other specified diseases of liver; I65.02 Occlusion and stenosis of left vertebral artery; E66.9 Obesity, unspecified; I10 Essential (primary) hypertension; I77.1 Stricture of artery; F32.A Depression, unspecified; I08.1 Rheumatic disorders of both mitral and tricuspid valves; E83.42 Hypomagnesemia; R47.1 Dysarthria and anarthria; E78.5 Hyperlipidemia, unspecified; E87.6 Hypokalemia; H91.90 Unspecified hearing loss, unspecified ear; W19.XXXA Unspecified fall, initial encounter; Z68.31 Body mass index [BMI] 31.0-31.9, adult; Z79.82 Long term (current) use of aspirin; Z79.899 Other long term (current) drug therapy; Z85.51 Personal history of malignant neoplasm of bladder; Z87.891 Personal history of nicotine dependence; Z87.442 Personal history of urinary calculi; Z96.641 Presence of right artificial hip joint; Z97.4 Presence of external hearing-aid; Z79.02 Long term (current) use of antithrombotics/antiplatelets; Z89.029 Acquired absence of unspecified finger(s); Z88.5 Allergy status to narcotic agent
CPT/HCPCS: 36415; 51701; 51798; 70450; 70496; 70498; 70544; 70551; 71046; 80048; 80053; 80061; 80320; 82550; 83735; 84132; 84484; 85025; 85027; 85610; 85730; 93005; 93306; 96361; 96374; 96375; 99291

== ENCOUNTER → 2025-02-06 | Outpatient (CLI) | payer MEDICARE, OTHER ==
[2025-02-06 15:16] LABS: Basophils # (A) 0.08 X 10*3/uL (0.00-0.10); Basophils % (A) 1.5 %; Eosinophils # (A) 0.28 X 10*3/uL (0.04-0.35); Eosinophils % (A) 5.4 %; HCT 37.9 % (39.6-50.0); HGB 12.9 g/dL (13.0-17.0); Immature Grans, Automated 0.40 %; Lymphocytes # (A) 1.29 X 10*3/uL (0.90-5.00); Lymphocytes % (A) 25.0 %; MCH 30.2 pg (27.0-32.0); MCHC 34.0 g/dL (32.0-37.0); MCV 88.8 FL (80.0-97.0); Monocytes # (A) 0.62 X 10*3/uL (0.20-1.00); Monocytes % (A) 12.0 %; NRBC Per 100 WBC 0 X 10*3/uL (0.00-0.01); Neutrophils # (A) 2.88 X 10*3/uL (1.80-7.70); Neutrophils % (A) 55.7 %; Platelet Count 304 X 10*3/uL (140-440); RBC 4.27 X 10*6/uL (4.40-5.60); RDW 13.5 % (11.5-14.5); WBC 5.17 X 10*3/uL (4.50-10.00)
[2025-02-06 15:57] LABS: ALT 74 U/L (10-49); AST 70 U/L (14-35); Albumin 4.4 g/dL (3.8-4.9); Albumin/Globulin Ratio 2.32 Ratio (1.60-3.17); Alkaline Phosphatase 86 U/L (41-126); Anion Gap 12.20 mmol/L (4.00-12.00); BUN/Creat Ratio 19.70 Ratio (12.00-20.00); Blood Urea Nitrogen 19.7 mg/dL (9.0-27.0); Calcium 9.3 mg/dL (8.7-10.3); Carbon Dioxide 26.8 mmol/L (21.6-31.8); Chloride 100 mmol/L (96-109); Globulin 1.9 g/dL (1.6-3.3); Glucose 160 mg/dL (70-110); Potassium 3.2 mmol/L (3.5-5.5); Sodium 139 mmol/L (135-145); Total Protein 6.3 g/dL (6.2-8.2)
== END | disposition home or self-care (01) ==
LOC: LABWHC1 11:29
PROVIDERS: ATTEND Nurse Practitioner Family
DX: K75.81 Nonalcoholic steatohepatitis (NASH) (principal)
CPT/HCPCS: 36415; 80053; 85025